=== PATIENT | female | born 1945 | race Caucasian/White ===

== ENCOUNTER 2018-03-06 09:32 | Outpatient (CLI) | payer MEDICARE, OTHER | END 2018-03-06 09:33 | disposition home or self-care (01) | LOC: BICMAMMO 09:32 | PROVIDERS: ATTEND Family Medicine | DX: Z12.31 Encounter for screening mammogram for malignant neoplasm of breast (principal); R92.1 Mammographic calcification found on diagnostic imaging of breast | CPT/HCPCS: 77063; 77067 ==

== ENCOUNTER 2018-05-07 10:23 | Outpatient (CLI) | payer MEDICARE, OTHER ==
[2018-05-07] MEDS ORDERED: ISOVUE-370 76%-LOCM 1 ML ONE (12:41)
--- NOTE | 2018-05-07 15:39 | CT ---
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 COMPARISON: CT angiogram of the chest 12/27/[address] of the abdomen and pelvis of 2014. TECHNIQUE: CT angiogram of the abdomen and pelvis with runoff to the feet was performed after the intravenous ad ministration of contrast. Three-D rendering was provided. There are multiple calcified granulomas of the subcarinal zone. There are mildly prominent right par atracheal lymph nodes. Heart size is enlarged. There is scarring and bronchiectasis in the lingula and left lung base. There is also scarring in the right lung base. Prior cholecystectomy. The liver and spleen and pancreas are unremarkable. No dilated loops of larg e or small bowel. The appendix is visualized and is normal. No retroperitoneal adenopathy. Cyst inferior pole right kidney is similar. No hydronephrosis. Adre nal gland is unremarkable. There is a lumbosacral transitional vertebra which will be stated as L5 on this exam. There is anter olisthesis of L4 over L5 due to degenerative facet arthrosis. VESSELS: The abdominal aorta is nonaneurysmal. This is minimally tortuous. The celiac trunk and superior mes enteric arteries are patent. Both renal arteries are patent. There are 2 left renal arteries. Ther e are also 2 right renal arteries. The common iliac arteries are patent. RIGHT SIDE: Internal iliac and external iliac arteries are patent. Common femoral artery is patent. The deep fe moral artery is patent. There is a focal 50% narrowing of the right popliteal artery at the popliteal hiatus axial 343. The trifurcation is patent. LEFT SIDE: The common femoral and femoral arteries are patent. Deep femoral artery is patent. The popliteal ar caroline is patent. There are large dilated superficial veins of the left superficial soft tissues. Left greater saphenous vein is dilated. Right-sided popliteal cyst is present. There is mild levoscoliosis of the lumbar spine. IMPRESSION: 1. No hemodynamically significant stenosis of the vasculature. There is a focal 50% narrowing of th e right popliteal artery at the adductor hiatus due to impingement. 2. Small volume popliteal cyst. 3. Dilated left greater saphenous vein and superficial collaterals. This can be seen with chronic v enous insufficiency. POS: TPC
== END 2018-05-07 10:24 | disposition home or self-care (01) ==
LOC: BICCT 10:23
PROVIDERS: ATTEND Internal Medicine Cardiovascular Disease
DX: I71.2 Thoracic aortic aneurysm, without rupture (principal); I70.201 Unspecified atherosclerosis of native arteries of extremities, right leg; I83.92 Asymptomatic varicose veins of left lower extremity; M71.21 Synovial cyst of popliteal space [Baker], right knee
CPT/HCPCS: 75635

== ENCOUNTER 2018-06-03 05:44 | Inpatient (IN) | payer MEDICARE, OTHER ==
[2018-05-31 13:11] VITALS: BMI 37.5
[2018-06-03] MEDS ORDERED: Albumin 5% 500 ML ONE (06:25)
[2018-06-03] MEDS ORDERED: Midazolam HCl 2 mg/2 ml Vial ONE (06:31)
[2018-06-03] MEDS ORDERED: Fentanyl 100 MCG/2 ML VIAL ONE (06:31)
[2018-06-03] MEDS ORDERED: Vecuronium 10 MG VIAL ONE ×2 (06:32→15:49)
[2018-06-03] MEDS ORDERED: Midazolam HCl 5 mg/5 ml Vial ONE (06:32)
[2018-06-03] MEDS ORDERED: Dexmedetomidine 200 MCG/2 ML VIAL ONE (06:32)
[2018-06-03] MEDS ORDERED: Heparin 10,000 UNITS/1 ML VIAL 30,000 UNITS in Sodium Chloride 0.9% 1,000 ML FS SCH (06:45)
[2018-06-03 06:48] LABS: #Eosinphils 0.4 thou/uL (0.0-0.7); #Lymphocytes 1.4 thou/uL (1.20-3.40); #Monocytes 0.5 thou/uL (0.11-0.59); #Neutrophils 3.9 thou/uL (1.40-6.50); %Basophils 0.4 % (0.0-1.0); %Eosinophils 6.8 % (0.0-10.0); %Lymphocytes 22.9 % (21.0-51.0); %Monocytes 7.4 % (0.0-10.0); %Neutrophils 62.5 % (42.0-75.0); Mean Corpuscular HGB CONC 33.3 g/dL (32.0-36.0); Mean Corpuscular Hemoglobin 31.3 pg (27.0-31.0); Mean Corpuscular Volume 93.9 fL (78.0-98.0); Mean Platelet Volume 7.9 fL (7.4-10.4); Platelet Count 243 thou/uL (130-400); RBC Distribution Width 12.5 % (11.5-14.5); Red Blood Cell (RBC) Count 5.11 mill/uL (4.20-5.40); White Blood Cell (WBC) Count 6.3 thou/uL (4.8-10.8)
[2018-06-03] MEDS ORDERED: Dexamethasone 4 mg/ml Vial ONE (07:04)
[2018-06-03] MEDS ORDERED: Sodium Chloride 0.9% 10 ML ONE (07:04)
[2018-06-03] MEDS ORDERED: Bupivacaine HCl 0.5%/Epinephrine 1:200,000/PF 30 ml Vial ONE (07:04)
[2018-06-03 07:06] LABS: Anion Gap 15 mmol/L (10-20); BUN (Urea Nitrogen) 11 mg/dL (9.8-20.1); Calc. Creatinine Clearance 84 mL/min (70-130); Calcium 10.1 mg/dL (7.8-10.44); Carbon Dioxide 24 mmol/L (23-31); Chloride 105 mmol/L (98-107); Estimated GFR-MDRD 63; Glucose 97 mg/dL (83-110); Potassium 3.9 mmol/L (3.5-5.1); Sodium 140 mmol/L (136-145)
[2018-06-03] MEDS ORDERED: CEFAZOLIN 2 GM/50 ML BAG ONE (07:13)
[2018-06-03] MEDS ORDERED: Nitroglycerin 50 MG/250 ML BOT 250 ML IVPB PRN (10:44)
[2018-06-03] MEDS ORDERED: DOPamine 400 MG/D5W 250 ML 250 ML IVPB PRN (10:44)
[2018-06-03] MEDS ORDERED: Bisacodyl 5 MG TAB PO PRN (10:44)
[2018-06-03] MEDS ORDERED: Fentanyl 100 MCG/2 ML VIAL SLOW IVP PRN ×2 (10:44→15:27)
[2018-06-03] MEDS ORDERED: Post-Op Insulin Drip Protocol IVPB ONE (10:44)
[2018-06-03] MEDS ORDERED: Bisacodyl 10 MG SUPP PR PRN (10:44)
[2018-06-03] MEDS ORDERED: Acetaminophen 325 MG TAB PO PRN (10:44)
[2018-06-03] MEDS ORDERED: Norepinephrine 8 MG/0.9% NS 250 ML IVPB PRN (10:44)
[2018-06-03] MEDS ORDERED: hydrALAZINE 20 MG/ML VIAL SLOW IVP PRN (10:44)
[2018-06-03] MEDS ORDERED: Mag-Al 1200 mg/1200 mg/30 ML UDCUP PO PRN (10:44)
[2018-06-03] MEDS ORDERED: HYDROcodone/Acetaminophen 5/325 mg Tablet PO PRN (10:44)
[2018-06-03] MEDS ORDERED: Hetastarch 6% 500 ML 500 ML IVPB PRN (10:44)
[2018-06-03] MEDS ORDERED: Guaifenesin DM 100-10/5 ML UDCUP PO PRN (10:44)
[2018-06-03] MEDS ORDERED: Magnesium 2 GM/NS 0.9% 100 ML 2 GM in Premix Bag 1 BAG IVPB SCH (10:45)
[2018-06-03] MEDS ORDERED: HUMULIN R 100 UNITS in Sodium Chloride 0.9% 100 ML IVPB SCH (11:11)
[2018-06-03] MEDS ORDERED: Dextrose 50% Abboject 50 ML SYRINGE SLOW IVP PRN (11:11)
[2018-06-03] MEDS ORDERED: Dextrose 5% in Water 1,000 ML IV PRN (11:11)
[2018-06-03] MEDS: Fentanyl 100 MCG/2 ML VIAL SLOW IVP PRN ×2 (11:13→14:30)
[2018-06-03] MEDS ORDERED: Fentanyl 100 MCG/2 ML VIAL SLOW IVP SCH (11:15)
[2018-06-03] MEDS: Insulin Regular 300 UNITS/3 ML VIAL SC PRN ×2 (11:17→15:08)
[2018-06-03] MEDS ORDERED: Magnesium 2 GM/50 ML 2 GM in Premix Bag 1 BAG IVPB SCH (11:30)
[2018-06-03 11:43] LABS: #Eosinphils 0.3 thou/uL (0.0-0.7); #Lymphocytes 1.8 thou/uL (1.20-3.40); #Monocytes 0.6 thou/uL (0.11-0.59); %Basophils 0.1 % (0.0-1.0); %Eosinophils 1.7 % (0.0-10.0); %Lymphocytes 11.6 % (21.0-51.0); %Monocytes 3.7 % (0.0-10.0); Hemoglobin 13.1 g/dL (12.0-16.0); Mean Corpuscular HGB CONC 33.5 g/dL (32.0-36.0); Mean Corpuscular Hemoglobin 31.4 pg (27.0-31.0); Mean Corpuscular Volume 93.9 fL (78.0-98.0); Mean Platelet Volume 8.1 fL (7.4-10.4); Platelet Count 180 thou/uL (130-400); RBC Distribution Width 12.1 % (11.5-14.5); Red Blood Cell (RBC) Count 4.16 mill/uL (4.20-5.40); White Blood Cell (WBC) Count 15.7 thou/uL (4.8-10.8)
[2018-06-03] MEDS: Sodium Chloride 0.9% 1,000 ML IV SCH ×2 (11:44→20:00)
--- NOTE | 2018-06-03 11:47 | OP ---
DATE OF PROCEDURE: 06/03/2018 PREOPERATIVE DIAGNOSIS: Coronary artery disease. PROCEDURES PERFORMED: Coronary artery bypass graft x2, left internal mammary artery as a sequential graft to the LAD diagonal, CELIS with good quality LAD and diagonal, both about 1.5 mm, free of disease. PUFF IRON OPERATOR: Dr. Shankar. TRANSFUSION: None. DESCRIPTION OF PROCEDURE: After adequate anesthesia had been obtained, the patient was prepped and draped. A piece of saphenous vein was harvested from the left lower leg by Dr. Shankar while I performed a median sternotomy. After opening the sternum, the left internal mammary artery was harvested. The patient was heparinized and the mammary divided distally and treated with intraluminal papaverine. Following this, it was passed posterior to the thymus gland. Aorta and right atrium were cannulated and it should be noted while the mammary artery was being harvested, the patient went into a rate controlled atrial fibrillation. After institution of cardiopulmonary bypass, the aorta was crossclamped and a liter of cold blood cardioplegia was given through the aortic root. Following this, the left atrial appendage was oversewn with a double layer of 4-0 Prolene suture and then the sequential diagonal [id number] CELIS, end-to-side to the LAD anastomosis was completed. The mammary pedicle was secured to the myocardium. Cross-clamp was removed and the cardioplegic needle site was oversewn with a pursestring suture of 5-0 Prolene and then a [id number] suture. The patient was then weaned from cardiopulmonary bypass. Cannula was removed. Protamine was given systemically. Aortic cannulation site was secured with a 4-0 Prolene suture. Mediastinal and left pleural drains were placed following which the sternum was reapproximated with #7 interrupted wire using vancomycin paste on the sternal edges, platelet rich blood, and platelet poor plasma. Subcutaneous tissue and skin were closed in layers. Job ID: [id number]
[2018-06-03] MEDS: Ondansetron PF 4 MG/2 ML Vial IVP PRN ×2 (11:50→17:38)
[2018-06-03] MEDS: Ketorolac Tromethamine 30 MG/ML VIAL IVP SCH ×2 (11:50→17:56)
[2018-06-03 11:58] LABS: INR-International Normal Ratio 1.2; PTT 31.3 SEC (22.9-36.1); Prothrombin Time 15.7 SEC (12.0-14.7)
[2018-06-03 12:10] LABS: Anion Gap 15 mmol/L (10-20); BUN (Urea Nitrogen) 9 mg/dL (9.8-20.1); Calc. Creatinine Clearance 96 mL/min (70-130); Calcium 8.2 mg/dL (7.8-10.44); Carbon Dioxide 20 mmol/L (23-31); Chloride 109 mmol/L (98-107); Estimated GFR-MDRD 73; Glucose 152 mg/dL (83-110); Potassium 3.8 mmol/L (3.5-5.1); Sodium 140 mmol/L (136-145)
--- NOTE | 2018-06-03 12:21 | RAD ---
PORTABLE SEMIUPRIGHT FRONTAL CHEST RADIOGRAPH: DATE: 06/03/2018. COMPARISON: None available. HISTORY: Open heart surgery. FINDINGS: Midline sternotomy wires are present. Postsurgical drainage catheter overlies the midline mediastinu m and the left lung base. There is a right-sided vascular catheter, distal tip overlying the region of the right atrium. There is pulmonary vascular prominence. There is no pneumothorax. There is bl unting of the costophrenic angles, left greater than right, suggesting volume loss or small volume pl eural fluid. Increased density in the left base obscures the left hemidiaphragm suggesting left lowe r lobe partial consolidation/collapse. IMPRESSION: Postoperative changes as detailed above. Increased density noted in the lung bases, left greater sarita n right, for which followup is advised. POS: OTILIA
[2018-06-03] MEDS: Potassium Chloride 20 MEQ/100 ML PREMIX BAG IVPB PRN ×2 (12:29→18:32)
[2018-06-03] MEDS: Promethazine HCl 25 MG/ML VIAL IM PRN ×2 (12:36→19:59)
[2018-06-03] MEDS ORDERED: CEFAZOLIN/Water 2 GM/20 ML SYRINGE SLOW IVP SCH (14:00)
[2018-06-03] MEDS ORDERED: Prevnar 13-Val Conj/PF 0.5 ML SYRINGE IM ONE (14:15)
[2018-06-03] MEDS: CEFAZOLIN 2 GM/50 ML-DEXTROSE 2 GM in Premix Bag 1 BAG IVPB SCH ×2 (14:25→21:19)
[2018-06-03] MEDS ORDERED: Magnesium 5 GM/10 ML VIAL ONE (15:49)
[2018-06-03] MEDS ORDERED: Ondansetron PF 4 MG/2 ML Vial ONE (15:49)
[2018-06-03] MEDS ORDERED: Papaverine 60 MG/2 ML VIAL ONE (15:49)
[2018-06-03] MEDS ORDERED: Glycopyrrolate 0.2 MG/ML 5 ML SYRINGE ONE (15:49)
[2018-06-03] MEDS ORDERED: PHENYLEPHRINE-NS 100 MCG/ML 10 ML SYRINGE ONE (15:49)
[2018-06-03] MEDS ORDERED: Potassium Chloride 60 MEQ/30 ML VIAL ONE (15:49)
[2018-06-03] MEDS ORDERED: Nitroglycerin 50 MG/250 ML BOT ONE (15:49)
[2018-06-03] MEDS ORDERED: Cardioplegic Soln 1,000 ML BAG ONE (15:49)
[2018-06-03] MEDS ORDERED: Sodium Bicarb 50 MEQ/50 ML VIAL ONE (15:49)
[2018-06-03] MEDS ORDERED: Heparin 5,000 UNITS/ML VIAL ONE (15:49)
[2018-06-03] MEDS ORDERED: Thrombin 5000 UNITS/5 ML VIAL ONE (15:49)
[2018-06-03] MEDS ORDERED: Calcium Chloride 1 GM/10 ML Abboject SYRINGE ONE (15:49)
[2018-06-03] MEDS ORDERED: Protamine Sulfate 250 MG/25 ML VIAL ONE (15:49)
[2018-06-03] MEDS ORDERED: ePHEDrine 50 MG/ML VIAL ONE (15:49)
[2018-06-03] MEDS ORDERED: Lidocaine 2% PF 100 mg/5 ml Syringe ONE (15:49)
[2018-06-03] MEDS ORDERED: Aminocaproic Acid 5 GM/20 ML VIAL ONE (15:49)
[2018-06-03] MEDS ORDERED: Metoprolol Tartrate 5 MG/5 ML VIAL ONE (15:49)
[2018-06-03] MEDS ORDERED: Ketorolac Tromethamine 30 MG/ML VIAL ONE (15:49)
[2018-06-03] MEDS ORDERED: Heparin 30,000 units/30 ml VIAL ONE (15:49)
[2018-06-03] MEDS ORDERED: Mannitol 12.5 GM/50 ML ONE (15:49)
[2018-06-03 18:02] LABS: Hemoglobin 13.1 g/dL (12.0-16.0)
[2018-06-03 18:06] LABS: Potassium 3.6 mmol/L (3.5-5.1)
[2018-06-03] MEDS: Simvastatin 20 MG TAB PO SCH (21:19)
[2018-06-03] MEDS: Famotidine/PF 20 mg/2ml Vial SLOW IVP SCH (21:19)
[2018-06-04 04:21] LABS: #Lymphocytes 0.9 thou/uL (1.20-3.40); #Monocytes 0.9 thou/uL (0.11-0.59); #Neutrophils 11.9 thou/uL (1.40-6.50); %Eosinophils 0.1 % (0.0-10.0); %Lymphocytes 6.3 % (21.0-51.0); %Monocytes 6.2 % (0.0-10.0); %Neutrophils 87.4 % (42.0-75.0); Hemoglobin 12.9 g/dL (12.0-16.0); Mean Corpuscular HGB CONC 33.9 g/dL (32.0-36.0); Mean Corpuscular Volume 94.5 fL (78.0-98.0); Mean Platelet Volume 8.4 fL (7.4-10.4); Platelet Count 173 thou/uL (130-400); RBC Distribution Width 12.4 % (11.5-14.5); Red Blood Cell (RBC) Count 4.02 mill/uL (4.20-5.40); White Blood Cell (WBC) Count 13.7 thou/uL (4.8-10.8)
[2018-06-04 04:39] LABS: Anion Gap 12 mmol/L (10-20); BUN (Urea Nitrogen) 12 mg/dL (9.8-20.1); Calc. Creatinine Clearance 98 mL/min (70-130); Calcium 7.7 mg/dL (7.8-10.44); Carbon Dioxide 19 mmol/L (23-31); Chloride 111 mmol/L (98-107); Estimated GFR-MDRD 76; Glucose 105 mg/dL (83-110); Potassium 3.8 mmol/L (3.5-5.1); Sodium 138 mmol/L (136-145)
[2018-06-04] MEDS: Ketorolac Tromethamine 30 MG/ML VIAL IVP SCH ×4 (05:46→17:11)
[2018-06-04] MEDS: CEFAZOLIN 2 GM/50 ML-DEXTROSE 2 GM in Premix Bag 1 BAG IVPB SCH (05:46)
[2018-06-04] MEDS: Sodium Chloride 0.9% 1,000 ML IV SCH ×2 (05:47→14:13)
[2018-06-04] MEDS: Potassium Chloride 20 MEQ/100 ML PREMIX BAG IVPB PRN (05:53)
--- NOTE | 2018-06-04 08:10 | PDOC.CTH ---
Cardiology Progress Note - Subjective The pt seen and examined. No overnight events. No cardiac complaints. She had to go back to bed short after getting up to chair due to dizziness and hypotesive. - Objective Vital Signs Temp Pulse Ox 06/04/18 07:40 95 06/04/18 07:00 98.2 F Weight 205 lb 0.478 oz 06/03/18 06/04/18 06/05/18 06:59 06:59 06:59 Intake Total 2146.8 Output Total 1265 60 Balance 881.8 -60 - Physical Examination General/Neuro: alert & oriented x3 Neck: no JVD present Lungs: other: (diminished at bases) Heart: RRR Abdomen: soft Extremities: other: (No edema) - Telemetry Telemetry Rhythm: SR 70s - Labs Result Diagrams: 06/04/18 04:06 06/04/18 04:06 - Assessment/Plan 1. CABG x2 on 06/03/2018 with CELIS-LAD and Diag - stable; On statin and ASA 325mg qd; will resume Bblocker and ARB when her VS is more stable 2. HTN - stable without any BP med for now. cont. to monitor MAR reviewed Pt. seen and eval. by me. I agree with the A/P by the DONOR SERVICES MANAGER.Pt. is feeling better after being back in bed. Chest clear. RRR. ANGEL ligated during surgery. Review of Systems - Review of Systems Constitutional: reports: weakness EENTM: reports: no symptoms reported Respiratory: reports: no symptoms reported Cardiac (ROS): reports: no symptoms reported ABD/GI: reports: no symptoms reported : reports: no symptoms reported
--- NOTE | 2018-06-04 08:25 | RAD ---
CHEST ONE VIEW: INDICATIONS: Status post open heart surgery. COMPARISON: 06/03/2018 FINDINGS: Midline sternotomy changes, mediastinal drains, and right subclavian central venous catheter is simil ar appearing. Left-sided pleural and parenchymal opacity and cardiomegaly are stable. No pneumothor ax is evident. IMPRESSION: Stable examination to 06/03/2018. POS: BH
[2018-06-04] MEDS: HYDROcodone/Acetaminophen 5/325 mg Tablet PO PRN ×2 (08:33→20:44)
[2018-06-04] MEDS: Famotidine/PF 20 mg/2ml Vial SLOW IVP SCH ×2 (08:35→20:43)
[2018-06-04] MEDS: Ondansetron PF 4 MG/2 ML Vial IVP PRN (08:36)
[2018-06-04] MEDS ORDERED: Polyethylene Glycol 3350 17 GM Packet PO SCH (09:00)
[2018-06-04] MEDS ORDERED: Aspirin 325 MG TAB PO SCH (09:00)
[2018-06-04 16:28] LABS: Actual Bicarbonate (HCO3a) 23.9 mEq/L (22-28); Analyzer IN Cardio OR; Base Excess (BEa) 0.6 mEq/L (-2.0 to +3.0); CO2 Tension 34.7 mmHg (35.0-45.0); Calcium, Ionized 1.16 mmol/L (1.12-1.30); Carboxyhemoglobin (COHb) 0.6 gm% (0.0-3.0); Hemoglobin (Hb) 14.7 g/dL (12.0-16.0); O2 Tension (PaO2) 264.8 mmHg (> 70.0); Potassium - ABG Lab 3.73 mmol/L (3.70-5.30); pH, Arterial 7.46 (7.35-7.45)
[2018-06-04 16:29] LABS: Actual Bicarbonate (HCO3a) 20.5 mEq/L (22-28); Analyzer IN Cardio OR; Base Excess (BEa) -2.4 mEq/L (-2.0 to +3.0); CO2 Tension 30.4 mmHg (35.0-45.0); Calcium, Ionized 1.12 mmol/L (1.12-1.30); Carboxyhemoglobin (COHb) 0.7 gm% (0.0-3.0); Hemoglobin (Hb) 14.5 g/dL (12.0-16.0); O2 Tension (PaO2) 169.5 mmHg (> 70.0); pH, Arterial 7.45 (7.35-7.45)
[2018-06-04 16:29] LABS: Actual Bicarbonate (HCO3a) 21.5 mEq/L (22-28); Analyzer IN Cardio OR; Base Excess (BEa) -4.3 mEq/L (-2.0 to +3.0); CO2 Tension 42.5 mmHg (35.0-45.0); Calcium, Ionized 1.05 mmol/L (1.12-1.30); Carboxyhemoglobin (COHb) 0.3 gm% (0.0-3.0); Hemoglobin (Hb) 10.9 g/dL (12.0-16.0); O2 Tension (PaO2) 405.9 mmHg (> 70.0); Potassium - ABG Lab 4.67 mmol/L (3.70-5.30); pH, Arterial 7.32 (7.35-7.45)
[2018-06-04 16:29] LABS: Actual Bicarbonate (HCO3v) 24 mEq/L (22-28); Analyzer IN Cardio OR; Base Excess -2.5 mEq/L (-2.0 to +3.0); Calcium, Ionized 1.05 mmol/L (1.16-1.32); Chloride (ABG LAB) 104 mmol/L (98-106); Hemoglobin (Hb) 10.9 g/dL (11.7-16.1); Potassium - ABG Lab 4.38 mmol/L (3.70-5.30); Sodium 133.9 mmol/L (133-146)
[2018-06-04 16:30] LABS: Actual Bicarbonate (HCO3a) 23.2 mEq/L (22-28); Analyzer IN Cardio OR; Base Excess (BEa) -2.2 mEq/L (-2.0 to +3.0); CO2 Tension 41.9 mmHg (35.0-45.0); Carboxyhemoglobin (COHb) 0.2 gm% (0.0-3.0); Hemoglobin (Hb) 13.1 g/dL (12.0-16.0); O2 Tension (PaO2) 249.8 mmHg (> 70.0); Potassium - ABG Lab 3.82 mmol/L (3.70-5.30); Puncture Site ALINE; pH, Arterial 7.36 (7.35-7.45)
[2018-06-04 16:31] LABS: Puncture Site ALINE
[2018-06-04 16:31] LABS: Puncture Site ALINE
[2018-06-04 16:32] LABS: Puncture Site ALINE
[2018-06-04] MEDS: Simvastatin 20 MG TAB PO SCH (20:43)
[2018-06-05] MEDS: Sodium Chloride 0.9% 1,000 ML IV SCH (00:53)
[2018-06-05] MEDS: Ketorolac Tromethamine 30 MG/ML VIAL IVP SCH ×2 (01:02→05:20)
[2018-06-05 05:12] LABS: #Eosinphils 0.2 thou/uL (0.0-0.7); #Lymphocytes 1.9 thou/uL (1.20-3.40); #Monocytes 0.8 thou/uL (0.11-0.59); #Neutrophils 7.4 thou/uL (1.40-6.50); %Basophils 0.4 % (0.0-1.0); %Eosinophils 1.8 % (0.0-10.0); %Lymphocytes 18.2 % (21.0-51.0); %Monocytes 7.5 % (0.0-10.0); %Neutrophils 72.1 % (42.0-75.0); Hemoglobin 11.5 g/dL (12.0-16.0); Mean Corpuscular HGB CONC 33.2 g/dL (32.0-36.0); Mean Corpuscular Hemoglobin 31.6 pg (27.0-31.0); Mean Corpuscular Volume 95.1 fL (78.0-98.0); Mean Platelet Volume 8.9 fL (7.4-10.4); Platelet Count 158 thou/uL (130-400); RBC Distribution Width 12.3 % (11.5-14.5); Red Blood Cell (RBC) Count 3.64 mill/uL (4.20-5.40); White Blood Cell (WBC) Count 10.3 thou/uL (4.8-10.8)
[2018-06-05 05:32] LABS: Anion Gap 10 mmol/L (10-20); BUN (Urea Nitrogen) 12 mg/dL (9.8-20.1); Calc. Creatinine Clearance 92 mL/min (70-130); Calcium 7.5 mg/dL (7.8-10.44); Carbon Dioxide 23 mmol/L (23-31); Chloride 107 mmol/L (98-107); Estimated GFR-MDRD 70; Glucose 104 mg/dL (83-110); Potassium 3.7 mmol/L (3.5-5.1); Sodium 136 mmol/L (136-145)
[2018-06-05] MEDS ORDERED: Mag-Al 1200 mg/1200 mg/30 ML UDCUP PO PRN (08:10)
[2018-06-05] MEDS ORDERED: Bisacodyl 10 MG SUPP PR PRN (08:10)
[2018-06-05] MEDS ORDERED: Nitroglycerin 0.4 MG TAB (25 Tab Bottle) SL PRN (08:10)
[2018-06-05] MEDS ORDERED: Promethazine HCl 25 MG/ML VIAL IM PRN (08:10)
[2018-06-05] MEDS ORDERED: Mineral Oil ENEMA PR PRN (08:10)
[2018-06-05] MEDS ORDERED: Milk Of Magnesia 30 ML UDCUP PO PRN (08:10)
[2018-06-05] MEDS ORDERED: Guaifenesin DM 100-10/5 ML UDCUP PO PRN (08:10)
[2018-06-05] MEDS ORDERED: Bisacodyl 5 MG TAB PO PRN (08:10)
[2018-06-05] MEDS ORDERED: HYDROcodone/Acetaminophen 5/325 mg Tablet PO PRN ×2 (08:10)
[2018-06-05] MEDS ORDERED: Fentanyl 100 MCG/2 ML VIAL SLOW IVP PRN ×2 (08:10)
[2018-06-05] MEDS ORDERED: Furosemide 20 MG/2 ML VIAL SLOW IVP SCH (08:10)
--- NOTE | 2018-06-05 08:23 | PDOC.CTH ---
Cardiology Progress Note - Subjective The pt seen and examined. No overnight events. No cardiac complaints. She had 1 episode of dizziness when she tx from the bed to chair this AM. She stated she has not walked since the sx. - Objective Vital Signs Temp 06/05/18 04:00 98.2 F 06/05/18 00:00 98.0 F Weight 204 lb 2.369 oz 06/04/18 06/05/18 06/06/18 06:59 06:59 06:59 Intake Total 2146.8 2366 Output Total 1265 949 Balance 881.8 1417 - Physical Examination General/Neuro: alert & oriented x3 Neck: no JVD present Lungs: CTA (diminished at bases) Heart: RRR Abdomen: soft Extremities: other: (No edema) - Telemetry Telemetry Rhythm: SR 70s - Labs Result Diagrams: 06/05/18 04:10 06/05/18 04:10 - Assessment/Plan 1. CABG x2 on 06/03/2018 with CELIS-LAD and Diag with ANGEL ligation - stable; On statin and ASA 325mg qd; Metoprolol 12.5mg BID from this AM. 2. HTN - Metoprolol 12.5mg BID from this AM. cont. to monitor MAR reviewed Review of Systems - Review of Systems Constitutional: reports: no symptoms reported EENTM: reports: no symptoms reported Respiratory: reports: no symptoms reported Cardiac (ROS): reports: no symptoms reported ABD/GI: reports: no symptoms reported : reports: no symptoms reported Musculoskeletal: reports: no symptoms reported
--- NOTE | 2018-06-05 08:23 | RAD ---
PORTABLE CHEST ONE VIEW: Date: 06-05-18 Time: 4:45 a.m. History: Post op open heart surgery. FINDINGS/IMPRESSION: No significant interval change is seen since the previous day's exam. POS: OTILIA
[2018-06-05] MEDS: Potassium Chloride 10 MEQ TAB PO SCH (09:26)
[2018-06-05] MEDS: Furosemide 40 MG TAB PO SCH (09:27)
[2018-06-05] MEDS: Famotidine 20 MG TAB PO SCH ×2 (09:27→20:10)
[2018-06-05] MEDS: Aspirin 325 mg Enteric Coated Tablet PO SCH (09:27)
[2018-06-05] MEDS: Metoprolol Tartrate 25 MG TAB PO SCH ×2 (09:28→20:09)
[2018-06-05] MEDS: Polyethylene Glycol 3350 17 GM Packet PO SCH (09:29)
[2018-06-05] MEDS: Atorvastatin Calcium 40 MG TAB PO SCH (20:08)
[2018-06-05] MEDS ORDERED: Simvastatin 40 MG TAB PO SCH (21:00)
[2018-06-05] MEDS ORDERED: Atorvastatin Calcium 20 MG TAB PO SCH (21:00)
[2018-06-06] MEDS: Polyethylene Glycol 3350 17 GM Packet PO SCH (08:13)
[2018-06-06] MEDS: Potassium Chloride 10 MEQ TAB PO SCH (08:15)
[2018-06-06] MEDS: Famotidine 20 MG TAB PO SCH ×2 (08:15→20:54)
[2018-06-06] MEDS: Furosemide 40 MG TAB PO SCH (08:15)
[2018-06-06] MEDS: Metoprolol Tartrate 25 MG TAB PO SCH ×2 (08:15→20:54)
[2018-06-06] MEDS: Aspirin 325 mg Enteric Coated Tablet PO SCH (08:16)
--- NOTE | 2018-06-06 12:37 | PDOC.CTH ---
Cardiology Progress Note - Subjective The pt seen and examined. No overnight events. No cardiac complaints. - Objective Vital Signs Temp Pulse Pulse Pulse Resp BP BP 06/06/18 11:20 98.8 F 86 16 06/06/18 08:50 87 89 120/62 117/58 L 06/06/18 07:15 98.4 F 82 16 06/06/18 04:00 99.1 F 81 18 BP BP Pulse Ox 06/06/18 11:20 120/67 93 L 06/06/18 08:50 06/06/18 07:15 136/60 93 L 06/06/18 04:00 113/57 L 93 L Weight 211 lb 3.2 oz 06/05/18 06/06/18 06/07/18 06:59 06:59 06:59 Intake Total 2366 1470 Output Total 949 2000 Balance 1417 -530 - Physical Examination General/Neuro: alert & oriented x3 Neck: no JVD present Lungs: CTA (diminished at bases) Abdomen: soft Extremities: other: (No edema) - Telemetry Telemetry Rhythm: SR - Labs Result Diagrams: 06/05/18 04:10 06/05/18 04:10 - Assessment/Plan 1. CABG x2 on 06/03/2018 with CELIS-LAD and Diag with ANGEL ligation - stable; On statin, ASA 325mg qd and Metoprolol 12.5mg BID. 2. HTN - stable with Metoprolol 12.5mg BID. MAR reviewed Pt. seen and eval. by me. I agree with the A/P by the ACTUARY. Chest clear. RRR.Doing well post CABG. Review of Systems - Review of Systems Constitutional: reports: weakness EENTM: reports: no symptoms reported Respiratory: reports: no symptoms reported Cardiac (ROS): reports: no symptoms reported ABD/GI: reports: no symptoms reported : reports: no symptoms reported Musculoskeletal: reports: no symptoms reported Skin: reports: no symptoms reported
[2018-06-06] MEDS: Acetaminophen 325 MG TAB PO PRN (18:26)
[2018-06-06] MEDS: Atorvastatin Calcium 40 MG TAB PO SCH (20:54)
[2018-06-07] MEDS ORDERED: Metoprolol Tartrate 25 MG TAB PO SCH (06:32)
[2018-06-07] MEDS: Aspirin 325 mg Enteric Coated Tablet PO SCH (08:42)
[2018-06-07] MEDS: Potassium Chloride 10 MEQ TAB PO SCH (08:42)
[2018-06-07] MEDS: Metoprolol Tartrate 25 MG TAB PO SCH ×2 (08:43→19:26)
[2018-06-07] MEDS: Polyethylene Glycol 3350 17 GM Packet PO SCH (08:43)
[2018-06-07] MEDS: Famotidine 20 MG TAB PO SCH ×2 (08:43→19:25)
[2018-06-07] MEDS: Furosemide 40 MG TAB PO SCH (08:43)
--- NOTE | 2018-06-07 08:52 | PDOC.CTH ---
Cardiology Progress Note - Subjective The pt seen and examined. No overnight events. No cardiac complaints. Instructed to walk as much as she can today. - Objective Vital Signs Temp Pulse Resp BP BP Pulse Ox 06/07/18 08:37 98.8 F 91 18 127/76 96 06/07/18 03:13 99.6 F 82 18 133/68 93 L Weight 207 lb 11.2 oz 06/06/18 06/07/18 06/08/18 06:59 06:59 06:59 Intake Total 1470 1280 Output Total 2000 900 Balance -530 380 - Physical Examination General/Neuro: alert & oriented x3 Neck: no JVD present Lungs: CTA Heart: RRR Abdomen: soft Extremities: other: (No edema) - Telemetry Telemetry Rhythm: SR - Labs Result Diagrams: 06/05/18 04:10 06/05/18 04:10 - Assessment/Plan 1. CABG x2 on 06/03/2018 with CELIS-LAD and Diag with ANGEL ligation - stable; On statin, ASA 325mg qd and Metoprolol 12.5mg BID. 2. HTN - stable with Metoprolol 12.5mg BID. RUI reviewed Pt. seen and eval. by me. I agree with the A/P by the LIBRARY AIDE. Chest clear. RRR.Doing well post CABG. she should be going home today or tomorrow. F/U with me in 1 month in office.
[2018-06-07] MEDS: Acetaminophen 325 MG TAB PO PRN (13:28)
[2018-06-07] MEDS: Atorvastatin Calcium 40 MG TAB PO SCH (19:26)
[2018-06-08] MEDS: Losartan 25 MG TAB PO SCH (07:48)
[2018-06-08] MEDS: Metoprolol Tartrate 25 MG TAB PO SCH ×2 (07:48→20:48)
[2018-06-08] MEDS ORDERED: Digoxin 0.5 MG/2 ML AMP SLOW IVP SCH (08:15)
[2018-06-08] MEDS ORDERED: Amiodarone 150 MG, Admixture Fee 1 EACH in Dextrose 5% in Water 100 ML IVPB SCH (08:30)
[2018-06-08] MEDS: Amiodarone 450 MG, Admixture Fee 1 EACH in Dextrose 5% in Water 250 ML IVPB SCH ×2 (08:52→18:51)
[2018-06-08 09:28] LABS: ALT (SGPT) 13 U/L (8-55); AST (SGOT) 25 U/L (5-34); Albumin 3.8 g/dL (3.4-4.8); Alkaline Phosphatase 68 U/L (40-150); Bilirubin, Direct 0.3 mg/dL (0.1-0.3); Bilirubin, Total 0.7 mg/dL (0.2-1.2); Protein, Total 7.2 g/dL (6.0-8.3)
[2018-06-08] MEDS: Furosemide 40 MG TAB PO SCH (10:34)
[2018-06-08] MEDS: Famotidine 20 MG TAB PO SCH ×2 (10:34→20:48)
[2018-06-08] MEDS: Potassium Chloride 10 MEQ TAB PO SCH (10:34)
[2018-06-08] MEDS: Aspirin 325 mg Enteric Coated Tablet PO SCH (10:34)
[2018-06-08] MEDS: Polyethylene Glycol 3350 17 GM Packet PO SCH (10:35)
[2018-06-08] MEDS: Atorvastatin Calcium 40 MG TAB PO SCH (20:48)
[2018-06-09 05:55] LABS: Anion Gap 13 mmol/L (10-20); BUN (Urea Nitrogen) 10 mg/dL (9.8-20.1); Calc. Creatinine Clearance 88 mL/min (70-130); Calcium 9.1 mg/dL (7.8-10.44); Carbon Dioxide 27 mmol/L (23-31); Chloride 102 mmol/L (98-107); Estimated GFR-MDRD 67; Glucose 104 mg/dL (83-110); Potassium 3.9 mmol/L (3.5-5.1); Sodium 138 mmol/L (136-145)
[2018-06-09] MEDS: Famotidine 20 MG TAB PO SCH ×2 (08:58→20:11)
[2018-06-09] MEDS: Furosemide 40 MG TAB PO SCH (08:58)
[2018-06-09] MEDS: Aspirin 325 mg Enteric Coated Tablet PO SCH (08:58)
[2018-06-09] MEDS: Metoprolol Tartrate 25 MG TAB PO SCH ×2 (08:59→20:11)
[2018-06-09] MEDS: Polyethylene Glycol 3350 17 GM Packet PO SCH (08:59)
[2018-06-09] MEDS: Losartan 25 MG TAB PO SCH (08:59)
[2018-06-09] MEDS: Potassium Chloride 10 MEQ TAB PO SCH (08:59)
[2018-06-09] MEDS: Amiodarone 450 MG, Admixture Fee 1 EACH in Dextrose 5% in Water 250 ML IVPB SCH (12:05)
[2018-06-09] MEDS: Amiodarone 200 MG TAB PO SCH (20:11)
[2018-06-09] MEDS: Atorvastatin Calcium 40 MG TAB PO SCH (20:11)
[2018-06-09] MEDS ORDERED: Amiodarone In Dextrose 360 MG in Premix Bag 1 BAG IVPB SCH (20:45)
[2018-06-10] MEDS: Furosemide 40 MG TAB PO SCH (09:23)
[2018-06-10] MEDS: Losartan 25 MG TAB PO SCH (09:23)
[2018-06-10] MEDS: Aspirin 325 mg Enteric Coated Tablet PO SCH (09:23)
[2018-06-10] MEDS: Amiodarone 200 MG TAB PO SCH ×2 (09:24→20:32)
[2018-06-10] MEDS: Potassium Chloride 10 MEQ TAB PO SCH (09:24)
[2018-06-10] MEDS: Famotidine 20 MG TAB PO SCH ×2 (09:24→20:32)
[2018-06-10] MEDS: Polyethylene Glycol 3350 17 GM Packet PO SCH (09:24)
[2018-06-10] MEDS: Metoprolol Tartrate 50 MG TAB PO SCH ×2 (09:24→20:33)
--- NOTE | 2018-06-10 12:34 | PDOC.CTH ---
Cardiology Progress Note - Subjective The pt seen and examined. No overnight events. No cardiac complaints. - Objective Vital Signs Temp Pulse Resp BP BP Pulse Ox 06/10/18 08:00 92 L 06/10/18 07:25 98.1 F 88 20 136/59 L 92 L 06/10/18 03:40 98.2 F 75 20 153/67 H 92 L Weight 200 lb 6.4 oz 06/09/18 06/10/18 06/11/18 06:59 06:59 06:59 Intake Total 1359 1840.4 Output Total 1950 2400 Balance -591 -559.6 - Physical Examination General/Neuro: alert & oriented x3 Neck: no JVD present Lungs: CTA Heart: RRR, other: Abdomen: soft Extremities: other: (No edema) - Telemetry Telemetry Rhythm: SR at this moment - Labs Result Diagrams: 06/05/18 04:10 06/09/18 04:49 - Assessment/Plan 1. Post-op Afib/Aflutter with RVR - intermittent Aflutter with controlled HR; Last aflutter episode was [id number] on 06/10/2018. On Amiodarone 400mg BID for 2wks (started on 06/09/2018); 200mg BID for 2wks, and change to 200mg qd ( started on 06/09/2018). Will request EP consult. 2. CABG x2 on 06/03/2018 with CELIS-LAD and Diag with ANGEL ligation - stable; On Lipitor 40mg, ASA 325mg qd and Metoprolol 50mg BID. 3. HTN - Metoprolol was increased from 25mg to 50 mg BID; On Losartan 50mg qd. MAR reviewed Pt. seen and eval. by me. I agree with the A/P by the CLINICAL PROGRAM DIRECTOR. If she remains in NSR then she could be seen by EP if she has further atrial flutter. She can go home with an event monitor tomorrow if she remains stable overnight. RRR. Chest clear. Incisions dry. Review of Systems - Review of Systems Constitutional: reports: no symptoms reported EENTM: reports: no symptoms reported Respiratory: reports: no symptoms reported Cardiac (ROS): reports: no symptoms reported ABD/GI: reports: no symptoms reported : reports: no symptoms reported Musculoskeletal: reports: no symptoms reported
--- NOTE | 2018-06-10 16:59 | CON ---
DATE OF CONSULTATION: 06/10/2018 REASON FOR CONSULTATION: Atrial arrhythmias. HISTORY OF PRESENT ILLNESS: Ms. Gomez is a pleasant 73-year-old woman with a history of coronary artery disease, who underwent elective coronary artery bypass performed on 06/03/[address] Scott. In her procedure, she had a CELIS to the LAD and also graft to the diagonal. Following her bypass, she was found to have atrial fibrillation and atrial flutter, prompting EP consultation. Ms. Gomez is feeling well today. Her chest tubes are out. Her temporary pacing wires are removed. Her catheter is out. She feels well and is eager to get home, but unfortunately continues to have paroxysmal episodes of rapid atrial flutter, which she is acutely aware of. She has not had any associated syncope or near syncope, but is quite aware of a heart racing sensation and palpitations. Currently, she is feeling well, resting comfortably in bed, and does not have any current cardiac symptoms. PAST MEDICAL HISTORY: 1. Coronary artery disease, status post CABG x2 vessel to LAD and diagonal on 06/03/2018 including left atrial appendage ligation. 2. Hypertension. 3. Arthritis. 4. Osteoporosis. 5. Obesity. PAST SURGICAL HISTORY: Tonsillectomy, cholecystectomy, hysterectomy, and laser ablation of the right greater saphenous vein. REVIEW OF SYSTEMS: A 12-point review of systems was conducted, positive for heart racing and palpitations. Otherwise, is negative and as per HPI. FAMILY HISTORY: Father at age 79. Mother at age 80 and was diagnosed with hypertension. SOCIAL HISTORY: Former tobacco user, greater than 10 years ago. . Denies alcohol or illicit drug use. ALLERGIES: NO KNOWN DRUG ALLERGIES. HOME MEDICATIONS: Include; 1. Naproxen 1 tablet p.r.n. 2. Nitroglycerin 1 tablet p.r.n. 3. Lutein one capsule daily. 4. Alendronate 1 tablet weekly. 5. Hydrochlorothiazide 12.5 mg daily. 6. Glucosamine chondroitin 1 tablet daily. 7. Colace 100 mg p.o. daily. 8. Calcium with vitamin D 1 tablet daily. 9. Aspirin 81 mg daily. 10. Multivitamin daily. 11. Losartan potassium 50 mg daily. 12. Omeprazole 20 mg p.r.n. 13. Metoprolol tartrate 25 mg p.o. b.i.d. PHYSICAL EXAMINATION: VITAL SIGNS: Temperature 98.1, pulse rate is 88, respirations 20, oxygen is 95 % on room air, and blood pressure is 136/59. Respirations 14. GENERAL: The patient is alert and oriented. Speech is clear. Affect is appropriate. She is well groomed and well nourished. She is in no apparent distress. Resting comfortably in bed during the exam. NECK: Supple without jugular venous distention. Her thyroid is not palpable. LUNGS: Clear to auscultation bilaterally without wheezes, crackles, or rhonchi. HEART: Rate is irregularly irregular with crisp S1 and S2. There is a fresh sternal incision healing from a recent bypass surgery. ABDOMEN: Obese, soft, and nontender without palpable masses. EXTREMITIES: Warm and dry to touch with trace bilateral edema. Healing incisions are noted to the left lower extremity from the saphenous venous graft sites. NEUROLOGIC: Grossly intact and nonfocal. Gait was not assessed. DATABASE: Hematology was reviewed and is unremarkable. Chemistry; potassium 3.9, creatinine 0.83, and magnesium 1.8. TSH is within normal limits. Telemetry and EKG, currently the patient is in sinus rhythm, but was in typical atrial flutter earlier this morning before she has spontaneously converted. There is a 2:1 CTI dependent flutter. She is also seen to have atrial fibrillation, it was earlier on the day of her surgery on 06/03/2018. IMPRESSION: 1. Recurrent atypical flutter on amiodarone. 2. Postoperative atrial fibrillation suppressed with amiodarone. 3. Coronary artery disease status post coronary artery bypass grafting. 4. Left atrial appendage oversewn during CABG 06/03/18 PLAN AND RECOMMENDATIONS: 1. Discussed treatment options for atrial arrhythmias for both left atrial circuits and right atrial circuits like her typical atrial flutter. Recommendation is for EP study and CTI ablation tomorrow. 2. Continue amiodarone short-term for at least 2 to 3 months postoperatively. Following this short course of amiodarone, could be discontinued if she has any further atrial arrhythmias are seen. We would recommend oral anticoagulation upon discharge until the left atrial appendage, which was sewn over during her bypass can be assessed by DHAVAL to demonstrate adequate closure. Ultimately, I think terminating atrial flutter with CTI ablation will allow her to stabilize and discharge home for the rest of her recovery. If further atrial fibrillation is seen following her recovery and amiodarone being discontinued could consider an ablation. This is all discussed with the patient including risks, benefits, and alternatives. She voices understanding and wishes to proceed with ablation for her atrial flutter tomorrow. Thank you for allowing us to participate in the care of this patient. Job ID: [id number] MTDD
[2018-06-10] MEDS: Atorvastatin Calcium 40 MG TAB PO SCH (20:32)
[2018-06-11 05:08] LABS: #Basophils 0.1 thou/uL (0.0-0.2); #Lymphocytes 1.9 thou/uL (1.20-3.40); #Monocytes 0.9 thou/uL (0.11-0.59); #Neutrophils 6.3 thou/uL (1.40-6.50); %Eosinophils 9.3 % (0.0-10.0); %Lymphocytes 18.9 % (21.0-51.0); %Neutrophils 61.8 % (42.0-75.0); Hemoglobin 12.9 g/dL (12.0-16.0); Mean Corpuscular HGB CONC 33.4 g/dL (32.0-36.0); Mean Corpuscular Hemoglobin 31.4 pg (27.0-31.0); Mean Corpuscular Volume 93.9 fL (78.0-98.0); Mean Platelet Volume 7.3 fL (7.4-10.4); Platelet Count 353 thou/uL (130-400); RBC Distribution Width 12.3 % (11.5-14.5); Red Blood Cell (RBC) Count 4.11 mill/uL (4.20-5.40); White Blood Cell (WBC) Count 10.2 thou/uL (4.8-10.8)
[2018-06-11 05:24] LABS: Anion Gap 12 mmol/L (10-20); BUN (Urea Nitrogen) 12 mg/dL (9.8-20.1); Calc. Creatinine Clearance 74 mL/min (70-130); Calcium 9.4 mg/dL (7.8-10.44); Carbon Dioxide 24 mmol/L (23-31); Chloride 103 mmol/L (98-107); Estimated GFR-MDRD 56; Glucose 111 mg/dL (83-110); Sodium 135 mmol/L (136-145)
[2018-06-11] MEDS: Famotidine 20 MG TAB PO SCH ×2 (08:52→20:32)
[2018-06-11] MEDS: Potassium Chloride 10 MEQ TAB PO SCH (08:52)
[2018-06-11] MEDS: Furosemide 40 MG TAB PO SCH (08:52)
[2018-06-11] MEDS: Losartan 25 MG TAB PO SCH (08:52)
[2018-06-11] MEDS: Amiodarone 200 MG TAB PO SCH ×2 (08:52→20:32)
[2018-06-11] MEDS: Aspirin 325 mg Enteric Coated Tablet PO SCH (08:52)
[2018-06-11] MEDS: Metoprolol Tartrate 50 MG TAB PO SCH ×2 (08:53→20:32)
[2018-06-11] MEDS: Polyethylene Glycol 3350 17 GM Packet PO SCH (08:53)
[2018-06-11] MEDS ORDERED: PHENYLEPHRINE-NS 100 MCG/ML 10 ML SYRINGE ONE (10:59)
[2018-06-11] MEDS ORDERED: PROPOFOL 200 MG/20 ML VIAL ONE (10:59)
--- NOTE | 2018-06-11 11:37 | PQF ---
CLINICAL DOCUMENTATION IMPROVEMENT CLARIFICATION FORM: ICD-10 Updated PLEASE DO AN ADDENDUM TO THE PROGRESS NOTE WITH ANY DOCUMENTATION UPDATES OR ADDITIONS AND CARRY THROUGH TO DC SUMMARY. THANK YOU. DATE: 06/11/2018 ATTN: Dr. Bradford Please exercise your independent, professional judgment in responding to the clarification form. Clinical indicators are provided on the bottom of this form for your review Please check appropriate box(s): [ x ] Post-Operative Complication - Atrial Fibrillation [ x ] Paroxysmal Atrial Fibrillation [ ] Persistent Atrial Fibrillation [ x ] Atrial fib/Atrial flutter [ ] Atrial Flutter [ ] Paroxysmal Atrial Fibrillation [ ] Persistent Atrial Fibrillation [ ] Other Diagnosis [ ] Unable to Determine In addition, please specify: Present on Admission (POA): [ ] Yes [ x ] No [ ] Unable to determine For continuity of documentation, please document condition throughout progress notes and discharge summary. Thank You. CLINICAL INDICATORS - SIGNS / SYMPTOMS / LABS PN 06/08 (MD Tyler) Atrial Flutter this am 143/84 rate 160's PN 06/10 (ANDREA Elder; MD Juana) Post-op Afib/Aflutter with RVR - intermittent Aflutter w/ controlled HR. EP Consult 06/10(Suzette) Telemetry and EKG, currently pt is in SR, but was in typical atrial flutter earlier this morning before she spontaneously converted. There is a 2:1 CTI dependent flutter Recurrent atypical flutter on amiodarone Postoperative atrial fibrillation suppressed with amiodarone RISKS: EP Consult 06/10: Coronary artery disease, s/p CABG x2 vessel to LAD and diagonal on 06/03/2018 including left atrial appendage ligation. TREATMENT: Order 06/09-06/10: IV Amiodarone Order 06/10: Amiodarone 400mg PO BID EP Consult 06/10 - EP study and CTI ablation tomorrow --- Thank you, Jaylin (This form is maintained as a part of the permanent medical record) 2015 [employer] All Rights Reserved Jaylin Barajas RN, BSN [email or web address] Office: [phone] [facility]
--- NOTE | 2018-06-11 11:48 | PDOC.CTH ---
Cardiology Progress Note - Subjective The pt seen and examined. No overnight events. No cardiac complaints. - Objective Vital Signs Temp Pulse Resp BP BP Pulse Ox 06/11/18 11:44 98.2 F 80 16 122/59 L 98 06/11/18 08:00 93 L 06/11/18 07:59 98.2 F 84 18 128/64 93 L 06/11/18 04:00 98.5 F 75 15 137/74 93 L Weight 201 lb 06/10/18 06/11/18 06/12/18 06:59 06:59 06:59 Intake Total 1840.4 1210 Output Total 2400 2050 Balance -559.6 -840 - Physical Examination General/Neuro: alert & oriented x3 Neck: no JVD present Lungs: CTA Heart: RRR Abdomen: soft Extremities: other: (No edema) - Telemetry Telemetry Rhythm: SR - Labs Result Diagrams: 06/11/18 04:51 06/11/18 04:51 - Assessment/Plan 1. Post-op Afib/Aflutter with RVR - intermittent Aflutter with controlled HR; Last aflutter episode was [id number] on 06/10/2018. Plan CTI ablation for Aflutter this afternoon by EP. On Amiodarone 400mg BID for 2wks (started on 01/2019); 200mg BID for 2wks, and change to 200mg qd (started on 06/09/2018). Will cont. for 2-3 months. 2. CABG x2 on 06/03/2018 with CELIS-LAD and Diag with ANGEL ligation - stable; On Lipitor 40mg, ASA 325mg qd and Metoprolol 50mg BID. 3. HTN - stable with Metoprolol 50 mg BID and Losartan 50mg qd. MAR reviewed Pt. seen and eval. by me. i agree with the A/P by the FURNITURE STAINER. Chest clear. RRR. Review of Systems - Review of Systems Constitutional: reports: no symptoms reported EENTM: reports: no symptoms reported Respiratory: reports: no symptoms reported Cardiac (ROS): reports: no symptoms reported ABD/GI: reports: no symptoms reported : reports: no symptoms reported Musculoskeletal: reports: no symptoms reported Skin: reports: no symptoms reported
[2018-06-11] MEDS ORDERED: Heparin 10,000 UNITS/1 ML VIAL ONE (14:33)
[2018-06-11] MEDS ORDERED: Propofol 1,000 MG/100 ML VIAL IV ONE (15:32)
[2018-06-11] MEDS ORDERED: Fentanyl 100 MCG/2 ML VIAL ONE (15:32)
[2018-06-11] MEDS ORDERED: Phenylephrine HCL 10 MG/ML VIAL ONE (16:01)
[2018-06-11] MEDS ORDERED: Amiodarone 150 MG/3 ML VIAL ONE (16:32)
[2018-06-11] MEDS ORDERED: DOPamine 400 MG/D5W 250 ML 250 ML ONE (17:03)
[2018-06-11] MEDS ORDERED: Ondansetron PF 4 MG/2 ML Vial ONE (18:10)
--- NOTE | 2018-06-11 18:29 | OP ---
DATE OF PROCEDURE: 06/11/2018 PROCEDURES PERFORMED: Electrophysiology study and radiofrequency ablation. REASON FOR PROCEDURE: Ms. Gomez is a 73-year-old woman with history of coronary artery disease, non-ST elevation myocardial infarction, status post coronary artery bypass graft surgery on the 4th. Records marked by persistent atrial fibrillation and with rapid rates, which required amiodarone, but then she developed the paroxysmal atrial flutter with rapid rates. She is here for cavotricuspid isthmus ablation. DESCRIPTION OF PROCEDURE: The patient received propofol by Anesthesia specialist. After adequate level of sedation achieved, the right femoral venous area was prepped, draped, and anesthetized using subcutaneous lidocaine and two 8-[place] short sheath was introduced under ultrasound guidance. Through this, a decapolar catheter was advanced to the right atrium, right ventricle, His bundle, and CS position. ThermoCool SFST catheter was advanced to the right atrium obtaining a 3D map delineating these points as well. Pacing, mapping, and recording were obtained in each location. Following findings were noted. Baseline rhythm is sinus rhythm, cycle length 903 milliseconds, MD 155, QRS 95 milliseconds, QT 425 milliseconds, AH 106 milliseconds, and HV 60 millisecond. Sinus node recovery times 1246. Corrected sinus node recovery time was 280 milliseconds. AV Wenckebach cycle length was 370 milliseconds. No VA conduction was seen with ventricular pacing. The burst atrial pacing was inducing atrial flutter and fibrillation both. At this point, decision was made to proceed with the cavotricuspid isthmus ablation, which was performed with using 40 blackwood of energy with a total of 15 lesions placed over time of 12 minutes and 34 seconds. The impedances averaged about 111 ohms. Following that prolongation of transisthmus time was seen to 180 milliseconds. During the study, amiodarone administration was necessary for suppression of atrial fibrillation. Dopamine was administered, and the transisthmus block was again checked and any reconnection to be ablated. The patient tolerated the procedure well. No complication noted. Cardiac silhouette did not change at the end of the procedure. CONCLUSION: 1. Successful cavotricuspid isthmus ablation. 2. Inducible paroxysmal atrial fibrillation requiring IV amiodarone. 3. Normal sinus and AV chris function. PLAN: 1. Continue p.o. amiodarone for suppression of atrial arrhythmias. Consider weaning it 3 months after bypass surgery frequency in the pulmonary venous isolation procedure as planned. 2. Likely benefit from oral anticoagulation when surgically feasible. Job ID: [id number]
[2018-06-11] MEDS: Atorvastatin Calcium 40 MG TAB PO SCH (20:32)
[2018-06-12] MEDS: Aspirin 325 mg Enteric Coated Tablet PO SCH (09:19)
[2018-06-12] MEDS: Potassium Chloride 10 MEQ TAB PO SCH (09:19)
[2018-06-12] MEDS: Metoprolol Tartrate 50 MG TAB PO SCH (09:19)
[2018-06-12] MEDS: Famotidine 20 MG TAB PO SCH (09:19)
[2018-06-12] MEDS: Amiodarone 200 MG TAB PO SCH (09:19)
[2018-06-12] MEDS: Furosemide 40 MG TAB PO SCH (09:19)
[2018-06-12] MEDS: Polyethylene Glycol 3350 17 GM Packet PO SCH (09:20)
[2018-06-12] MEDS: Losartan 25 MG TAB PO SCH (09:20)
[2018-06-12 09:31] VITALS: BP 116/62; TEMP 98
--- NOTE | 2018-06-12 10:17 | DIS ---
DATE OF ADMISSION: 06/03/2018 DATE OF DISCHARGE: 06/12/2018 This is a 73-year-old female, who was admitted to the hospital for coronary artery bypass grafting to the LAD and diagonal with left atrial appendage ligation. Her postoperative course was eventful only for some atrial flutter, which required ablation on 06/[address] Bradford. She will be discharged home on amiodarone tapering dose over the next month, as well as metoprolol succinate 50 mg a day, [place] for pain, and she will resume her other home medications. Discharge and followup instructions were given. Job ID: [id number]
--- NOTE | 2018-06-12 11:30 | PDOC.CTH ---
Cardiology Progress Note - Subjective The pt seen and examined. No overnight events. No cardiac complaints. - Objective Vital Signs Temp Pulse Resp BP BP Pulse Ox 06/12/18 09:00 98.0 F 79 18 116/62 95 06/12/18 08:00 95 06/12/18 04:00 98.3 F 71 17 107/56 L 92 L Weight 199 lb 06/11/18 06/12/18 06/13/18 06:59 06:59 06:59 Intake Total 1210 480 Output Total 2050 1650 Balance -840 -1170 - Physical Examination General/Neuro: alert & oriented x3 Neck: no JVD present Lungs: CTA Heart: RRR Abdomen: soft Extremities: other: (no edema) - Telemetry Telemetry Rhythm: SR - Labs Result Diagrams: 06/11/18 04:51 06/11/18 04:51 - Assessment/Plan 1. Post-op Afib/Aflutter with RVR with Aflutter Ablation on 06/11/2018 - remains in SR; On Amiodarone 400mg BID for 2wks (started on 06/09/2018); 200mg BID for 2wks, and change to 200mg qd (started on 06/09/2018). On ASA 325mg qd with s/p ANGEL ligation. 2. CABG x2 on 06/03/2018 with CELIS-LAD and Diag with ANGEL ligation - stable; On Lipitor 40mg, ASA 325mg qd and Metoprolol 50mg BID. 3. HTN - Metoprolol was increased from 25mg to 50 mg BID; On Losartan 50mg qd. MAR reviewed * From Cardiac standpoint, the pt is stable to d/c home. The pt will f/u with Dr Arias' office within 2-4wks. Review of Systems - Review of Systems Constitutional: reports: no symptoms reported EENTM: reports: no symptoms reported Respiratory: reports: no symptoms reported Cardiac (ROS): reports: no symptoms reported ABD/GI: reports: no symptoms reported : reports: no symptoms reported Musculoskeletal: reports: no symptoms reported Skin: reports: no symptoms reported Neurological: reports: no symptoms reported
--- NOTE | 2018-06-12 12:40 | PDOC.CTH ---
Cardiology Progress Note - Subjective EP PROGRESS NOTE: 06/12/18 Seen for atrial arrhythmias. Feeling well after ablation yesterday. Eager for DC. - Objective Vital Signs Temp Pulse Resp BP BP Pulse Ox 06/12/18 09:00 98.0 F 79 18 116/62 95 06/12/18 08:00 95 06/12/18 04:00 98.3 F 71 17 107/56 L 92 L Weight 199 lb 06/11/18 06/12/18 06/13/18 06:59 06:59 06:59 Intake Total 1210 480 Output Total 2050 1650 Balance -840 -1170 - Physical Examination General/Neuro: alert & oriented x3, NAD Neck: carotid US brisk, no JVD present Lungs: CTA, unlabored respirations Heart: PMI normal, RRR Abdomen: NT/ND, soft - Telemetry Telemetry Rhythm: SR - Labs Result Diagrams: 06/11/18 04:51 06/11/18 04:51 - Assessment/Plan 1. CAD s/p CABG 2. A Fib post operative 3. Atrial flutter, typical 4. CHADS2-VASC: 4 5. Left atrial appendage oversewn during CABG Maintaining sinus mechanism since CTI ablation for a. flutter yesterday. Multiple left atrial circuits seen during EPS. AFib suppressed with amiodarone. Continue short term amiodarone x 2-3 months post CABG. Will see back in clinic in 6 weeks. Recommend oral anticoagulation until left atrial appendage closure can be evaluated with DHAVAL. Amiodarone: 200mg PO BID x 2 weeks then 200mg PO daily thereafter.
--- NOTE | 2018-06-12 12:45 | EKG ---
Test Reason : Blood Pressure : / mmHG Vent. Rate : 164 BPM Atrial Rate : 166 BPM P-R Int : 000 ms QRS Dur : 076 ms QT Int : 290 ms P-R-T Axes : 000 001 143 degrees QTc Int : 478 ms Atrial fibrillation with rapid ventricular response Low voltage QRS Nonspecific ST and T wave abnormality , probably digitalis effect Abnormal ECG When compared with ECG of 03-JUN-2018 12:46, Significant changes have occurred Confirmed by DR. Jac HERMAN ([id number]) on 06/12/2018 12:45:25 PM Referred By: ADRIANNE Confirmed By:DR. Jac HERMAN
--- NOTE | 2018-06-12 12:49 | EKG ---
Test Reason : Blood Pressure : / mmHG Vent. Rate : 067 BPM Atrial Rate : 067 BPM P-R Int : 170 ms QRS Dur : 084 ms QT Int : 442 ms P-R-T Axes : 060 002 054 degrees QTc Int : 467 ms Normal sinus rhythm Low voltage QRS Borderline ECG When compared with ECG of 08-JUN-2018 08:02, (Unconfirmed) Sinus rhythm has replaced Atrial fibrillation Vent. rate has decreased BY 97 BPM Non-specific change in ST segment in Inferior leads Nonspecific T wave abnormality, improved in Lateral leads Confirmed by DR. Jac HERMAN ([id number]) on 06/12/2018 12:48:44 PM Referred By: Confirmed By:DR. Jac HERMAN
== END 2018-06-12 11:33 | disposition home or self-care (01) | DRG 236 ==
LOC: SURG A 05:44 → CCU 11:03 → 2NO 06-05 21:01
PROVIDERS: ADMIT Thoracic Surgery (Cardiothoracic Vascular Surgery); ATTEND Thoracic Surgery (Cardiothoracic Vascular Surgery)
PROC: 02110Z9 Bypass Coronary Artery, Two Arteries from Left Internal Mammary, Open Approach (ICD-10-PCS; principal; 2018-06-03)
PROC: 5A1221Z Performance of Cardiac Output, Continuous (ICD-10-PCS; 2018-06-03)
PROC: 02L70ZK Occlusion of Left Atrial Appendage, Open Approach (ICD-10-PCS; 2018-06-03)
PROC: 02583ZZ Destruction of Conduction Mechanism, Percutaneous Approach (ICD-10-PCS; 2018-06-11)
PROC: 02K83ZZ Map Conduction Mechanism, Percutaneous Approach (ICD-10-PCS; 2018-06-11)
PROC: 4A023FZ Measurement of Cardiac Rhythm, Percutaneous Approach (ICD-10-PCS; 2018-06-11)
PROC: 4A0234Z Measurement of Cardiac Electrical Activity, Percutaneous Approach (ICD-10-PCS; 2018-06-11)
DX: I25.118 Atherosclerotic heart disease of native coronary artery with other forms of angina pectoris (principal); I97.190 Other postprocedural cardiac functional disturbances following cardiac surgery; I48.4 Atypical atrial flutter; I48.0 Paroxysmal atrial fibrillation; I10 Essential (primary) hypertension; M19.90 Unspecified osteoarthritis, unspecified site; M81.0 Age-related osteoporosis without current pathological fracture; E66.9 Obesity, unspecified; I25.2 Old myocardial infarction; Z87.891 Personal history of nicotine dependence; Z68.36 Body mass index [BMI] 36.0-36.9, adult; Z79.82 Long term (current) use of aspirin; Y83.2 Surgical operation with anastomosis, bypass or graft as the cause of abnormal reaction of the patient, or of later complication, without mention of misadventure at the time of the procedure
CPT/HCPCS: 36415; 36416; 36430; 71045; 76942; 80048; 80076; 82805; 83735; 84132; 84443; 85025; 85610; 85730; 86850; 86900; 86901; 92960; 93005; 93010; 93613; 93623; 93653; 93798; C1730; C1769; J0282; J0670; J1100; J1160; J1265; J1642; J1644; J1815; J1885; J1940; J2001; J2150; J2250; J2370; J2405; J2440; J2550; J2704; J2720; J3010; J3370; J3475; J3480; J3490; J7050; J7070; P9045; S0017; S0028

== ENCOUNTER 2018-07-07 01:38 | Observation (INO) | payer MEDICARE, OTHER ==
[2018-07-07 03:26] LABS: #Eosinphils 0.3 thou/uL (0.0-0.7); #Lymphocytes 1.5 thou/uL (1.20-3.40); #Monocytes 0.6 thou/uL (0.11-0.59); #Neutrophils 4.6 thou/uL (1.40-6.50); %Basophils 0.3 % (0.0-1.0); %Eosinophils 4.7 % (0.0-10.0); %Lymphocytes 21.3 % (21.0-51.0); %Monocytes 8.8 % (0.0-10.0); %Neutrophils 64.9 % (42.0-75.0); Hemoglobin 11.9 g/dL (12.0-16.0); Mean Corpuscular HGB CONC 32.8 g/dL (32.0-36.0); Mean Corpuscular Hemoglobin 30.7 pg (27.0-31.0); Mean Corpuscular Volume 93.4 fL (78.0-98.0); Mean Platelet Volume 7.3 fL (7.4-10.4); Platelet Count 296 thou/uL (130-400); RBC Distribution Width 12.6 % (11.5-14.5); Red Blood Cell (RBC) Count 3.89 mill/uL (4.20-5.40)
[2018-07-07 03:42] LABS: ALT (SGPT) 12 U/L (8-55); AST (SGOT) 16 U/L (5-34); Albumin 3.6 g/dL (3.4-4.8); Alkaline Phosphatase 84 U/L (40-150); Anion Gap 14 mmol/L (10-20); BUN (Urea Nitrogen) 15 mg/dL (9.8-20.1); Bilirubin, Total 0.4 mg/dL (0.2-1.2); Calc. Creatinine Clearance 0 mL/min (70-130); Calcium 9.8 mg/dL (7.8-10.44); Carbon Dioxide 23 mmol/L (23-31); Chloride 104 mmol/L (98-107); Estimated GFR-MDRD 51; Globulin 3.4 g/dL (2.4-3.5); Glucose 116 mg/dL (83-110); Potassium 3.4 mmol/L (3.5-5.1); Sodium 138 mmol/L (136-145)
[2018-07-07 03:45] LABS: Actual Bicarbonate (HCO3a) 22.3 mEq/L (22-28); Analyzer IN Cardio ER; Base Excess (BEa) -0.1 mEq/L (-2.0 to +3.0); CO2 Tension 29.7 mmHg (35.0-45.0); Calcium, Ionized 1.22 mmol/L (1.12-1.30); Carboxyhemoglobin (COHb) 0.3 gm% (0.0-3.0); Hemoglobin (Hb) 12.3 g/dL (12.0-16.0); O2 Tension (PaO2) 99.8 mmHg (> 70.0); Potassium - ABG Lab 3.37 mmol/L (3.70-5.30); pH, Arterial 7.49 (7.35-7.45)
[2018-07-07 03:47] LABS: Puncture Site R RADIAL
[2018-07-07 03:48] LABS: ALV-art Gradient 62.715 (0-20)
[2018-07-07] MEDS ORDERED: Cefepime 2 GM in Sodium Chloride 0.9% 100 ML IVPB SCH (05:45)
[2018-07-07] MEDS ORDERED: VANCOMYCIN HCL IVPB SCH (06:00)
[2018-07-07] MEDS ORDERED: WATER IVPB SCH (06:00)
[2018-07-07] MEDS ORDERED: DEXTROSE 5% IVPB SCH (06:00)
[2018-07-07] MEDS ORDERED: Nitroglycerin 0.4 MG TAB (25 Tab Bottle) PO PRN (06:14)
[2018-07-07] MEDS ORDERED: Senokot S 8.6-50 MG TAB PO PRN (06:14)
[2018-07-07] MEDS ORDERED: Calcium Carbonate 500 MG ChewTAB PO PRN (06:14)
[2018-07-07] MEDS ORDERED: Acetaminophen 325 MG TAB PO PRN (06:14)
[2018-07-07] MEDS ORDERED: Potassium Chloride 20 MEQ TAB PO SCH (06:15)
--- NOTE | 2018-07-07 06:56 | HP ---
PRIMARY CARE PHYSICIAN: Dr. Mora. PRIMARY FIELD SALES MANAGER: Dr. Arias. CHIEF COMPLAINT: Palpitations. HISTORY OF PRESENT ILLNESS: The patient is a 73-year-old female with recent coronary artery bypass grafting, presented to the emergency room with above complaints. Post-CABG, she was found to have atrial fibrillation with atrial flutter requiring ablation. She was discharged home on amiodarone taper as well as metoprolol. The patient presented to the emergency room with palpitations that started last night. She felt like skipping beats. She had mild shortness of breath during the ambulance ride. She also has dry cough recently. No chest pain, lightheadedness, dizziness, syncope, diaphoresis, nausea, or vomiting reported. She is compliant with all of her medications. The palpitations were intermittent without any aggravating or relieving factor. In the emergency room, her initial vital signs showed temperature 98.4, respirations 16, pulse 81, blood pressure 172/71 with O2 saturation 88% on room air. Her O2 saturation improved to 95% on 2 L nasal cannula. Chest x-ray was negative for infiltrate. CT scan of the chest showed trace pleural effusion. Her EKG showed sinus rhythm with premature atrial complexes. She will currently receive vancomycin and cefepime in the emergency room for possible pneumonia. PAST MEDICAL HISTORY: 1. Coronary artery disease, status post CABG last month. 2. Hypertension. 3. Hyperlipidemia. 4. Obesity. 5. Degenerative joint disease. 6. Atrial flutter, status post ablation last month. PAST SURGICAL HISTORY: 1. Tonsillectomy. 2. Coronary artery bypass grafting. 3. Cholecystectomy. 4. Hysterectomy. 5. Ablation for atrial flutter. 6. Arthroscopic knee surgery. ALLERGIES: NO KNOWN DRUG ALLERGIES. CURRENT HOME MEDICATIONS: 1. Amiodarone 200 mg daily. 2. Amlodipine 5 mg daily. 3. Calcium with vitamin D daily. 4. Colace 100 mg daily. 5. Glucosamine 1 tablet daily. 6. Hydrochlorothiazide 12.5 mg daily. 7. Losartan 50 mg b.i.d. 8. Multivitamin 1 tablet daily. 9. Omeprazole every other day. 10. Eliquis 5 mg b.i.d. 11. Lopressor 50 mg b.i.d. 12. Sublingual nitroglycerin as needed. SOCIAL HISTORY: The patient currently lives at home with her family. She makes her own decision with the help of her family. She is full code. FAMILY HISTORY: Mother with hypertension. REVIEW OF SYSTEMS: All other review of systems were reviewed and were found negative. PHYSICAL EXAMINATION: VITAL SIGNS: As discussed above. GENERAL: A 73-year-old female, in no apparent distress. Denies any chest discomfort. HEENT: Head, atraumatic and normocephalic. Sclerae anicteric. Moist mucous membranes. No oral lesion. NECK: Supple. No JVD appreciated. No carotid bruit. LUNGS: Showed diminished air entry at bilateral bases with scattered rales especially at bases. No significant rhonchi or wheezing noted. No accessory muscle use. HEART: S1 and S2 present. Regular rate and rhythm. Well healing midline CABG incision. No heaves or pulsation. ABDOMEN: Soft, nontender. Bowel sounds present. EXTREMITIES: 1+ edema in bilateral lower extremity. No calf tenderness. SKIN: Warm and dry. LYMPH NODES: No palpable lymph nodes in the neck. PERIPHERAL VASCULAR: Radial pulses palpable bilaterally. MUSCULOSKELETAL: No joint swelling or tenderness. LABORATORY FINDINGS: EKG by my review as discussed above. Chest x-ray and CT scan of the chest by my review as discussed above. WBC 7.0 with neutrophils of 64.9%. Platelet count 296, with hemoglobin 11.9. Sodium 138, potassium 3.4, chloride 104, bicarb 23, BUN 15, and creatinine 1.06. BNP was 81. Lactic acid normal. LFTs in normal range. ABG showed pH 7.49 with pCO2 of 29.7, PO2 99.8 on 2 L nasal cannula. IMPRESSION: 1. Acute hypoxic respiratory failure, probably secondary to atelectasis. 2. Palpitations. 3. Coronary artery disease, status post recent coronary artery bypass graft. 4. Atrial fibrillation, post coronary artery bypass graft, currently on amiodarone, and metoprolol, as well as Eliquis. 5. Atrial flutter, status post ablation last month. 6. Hypertension. 7. Degenerative joint disease. PLAN: The patient will be monitored in the telemetry unit as observation. All of her home medications will be restarted including beta blockers, anticoagulation, and amiodarone. We will hold antibiotics for now since there is no evidence of infection on the imaging. She does not have leukocytosis. We will confirm official CT scan report before continuing antibiotics. We will replace potassium. We will recheck labs in a.m. Consult Cardiology, Dr. Pathak. Continue cardiac rehab. Plan of care was discussed with the patient and the family in detail. They stated understanding. Job ID: [id number]
[2018-07-07 08:34] VITALS: BMI 36.8
--- NOTE | 2018-07-07 08:37 | RAD ---
SINGLE VIEW OF THE CHEST: COMPARISON: 06/05/2018. HISTORY: Shortness of breath. FINDINGS: A single view of the chest shows a normal-size cardiomediastinal silhouette. The patient is status p ost sternotomy. There is blunting of both costophrenic angles which may represent atelectasis or sma ll pleural effusions. IMPRESSION: Bibasilar atelectasis. POS: [facility]
[2018-07-07 08:57] LABS: Troponin I 0.016 ng/mL (< 0.028)
[2018-07-07] MEDS: Docusate 100 MG CAP PO SCH (09:50)
[2018-07-07] MEDS: Losartan 25 MG TAB PO SCH ×2 (09:50→20:52)
[2018-07-07] MEDS: Hydrochlorothiazide 25 MG TAB PO SCH (09:50)
[2018-07-07] MEDS: Amlodipine 5 MG TAB PO SCH (09:50)
[2018-07-07] MEDS: Amiodarone 200 MG TAB PO SCH (09:50)
[2018-07-07] MEDS: Apixaban 5 MG TAB PO SCH ×2 (09:50→20:51)
[2018-07-07] MEDS: Calcium Carbonate + Vit D 1 TAB PO SCH (09:50)
[2018-07-07] MEDS: Metoprolol Tartrate 50 MG TAB PO SCH ×2 (09:50→20:51)
--- NOTE | 2018-07-07 11:27 | CT ---
PRELIMINARY REPORT/[facility]/EMERGENCY AFTER HOURS PROCEDURE: EXAM: CT Angiography Chest With Contrast EXAM DATE/TIME: 07/07/2018 4:27 AM CLINICAL HISTORY: 73 years old, female; Signs and symptoms; Dyspnea and shortness of breath; Prior surgery; Surgery helder e: 1-6 months; Surgery type: Er 5; Patient laid down to go to sleep and started having palpitations " it felt like it was flip flopping" had double bypass 2/4. Denies pain, reports some SOB that also sta rted tonight TECHNIQUE: Axial computed tomographic angiography images of the chest with intravenous contrast using CT angiogr aphy protocol. MIP reconstructed images were created and reviewed. COMPARISON: No relevant prior studies available. FINDINGS: Pulmonary arteries: No evidence of a pulmonary embolism. Aorta: Atherosclerotic changes of the thoracic aorta without aneurysm. Ectasia of the ascending thora cic aorta. Lungs: Bibasilar subsegmental atelectasis. Pleural space: Trace right pleural effusion. Heart: Surgical changes of coronary artery bypass. The heart is mildly enlarged. Trace pericardial ef fusion. Mild fat stranding in the anterior mediastinum consistent with recent coronary artery bypass. Lymph nodes: Coarsely calcified subcarinal lymph node. Bones/joints: Recent sternotomy. No associated abnormal fluid collections. Soft tissues: Mild fat stranding anterior chest subcutaneous tissues consistent with recent surgery. IMPRESSION: 1. No evidence of a pulmonary embolism. 2. Bibasilar subsegmental atelectasis and trace right pleural effusion. 3. Surgical changes of recent coronary artery bypass. Thank you for allowing us to participate in the care of your patient. Dictated and Authenticated by: Janelle Luis MD 07/07/2018 4:48 AM Central Time ([place] & [place]) FINAL REPORT EMERGENT AFTER HOURS CA OF THE CHEST WITH CONTRAST: TECHNIQUE: Multiple contiguous axial images were obtained in a CTA of the chest with contrast per pulmonary embo lism protocol. Three-D oblique MIP reformats were performed. FINDINGS/IMPRESSION: I agree with the findings and impression given in the preliminary report per [facility] physician. 1. No evidence of pulmonary thromboembolism. 2. Small right pleural effusion. 3. Bibasilar atelectasis. POS: [facility]
[2018-07-07 11:45] LABS: Troponin I 0.016 ng/mL (< 0.028)
--- NOTE | 2018-07-07 12:35 | PDOC.PN ---
- Subjective Encounter Start Date: 07/07/18 Encounter Start Time: 07:40 Pt seen for followup re: acute hypoxic respiratory failure. Pt denies chest pain, shortness of breath, fevers or chills. - Objective Resuscitation Status - Order Detail: 07/07/18 06:14 Resuscitation Status Routine Resuscitation Status: FULL: Full Resuscitation MAR Reviewed: Yes Vital Signs & Weight: Vital Signs (12 hours) Temp Pulse Resp BP Pulse Ox 07/07/18 12:07 98.1 F 70 18 130/69 97 07/07/18 07:30 98.4 F 69 16 145/65 H 98 Weight Weight 201 lb 6.4 oz Result Diagrams: 07/07/18 03:05 07/07/18 03:05 EKG Reviewed by me: Yes (tele: NSR) Phys Exam - Physical Examination Constitutional: NAD HEENT: moist MMs Neck: supple Respiratory: clear to auscultation bilateral Cardiovascular: RRR Gastrointestinal: soft Neurological: moves all 4 limbs Psychiatric: normal affect Dx/Plan (1) Acute respiratory failure with hypoxia Code(s): J96.01 - ACUTE RESPIRATORY FAILURE WITH HYPOXIA Status: Acute Comment: due to atelectasis; no evidence of infection (2) Atelectasis of both lungs Code(s): J98.11 - ATELECTASIS Status: Acute Comment: pt encouraged to use incentive spirometry (3) CAD (coronary artery disease) Code(s): I25.10 - ATHSCL HEART DISEASE OF [place] CORONARY ARTERY W/O ANG PCTRS Status: Chronic Comment: stable, s/p CABG (4) HTN (hypertension) Code(s): I10 - ESSENTIAL (PRIMARY) HYPERTENSION Status: Chronic Comment: controlled (5) Afib Code(s): I48.91 - UNSPECIFIED ATRIAL FIBRILLATION Status: Chronic Comment: continue apixaban, pt is in sinus rhythm now - Plan * . Review of Systems - Review of Systems Respiratory: negative: Cough, Shortness of Breath, SOB with Excertion, Pleuritic Pain, Wheezing Cardiovascular: negative: chest pain, palpitations, orthopnea, paroxysmal nocturnal dyspnea, edema, light headedness - Medications/Allergies Allergies/Adverse Reactions: Allergies Allergy/AdvReac Type Severity Reaction Status Date / Time No Known Allergies Allergy Verified 07/07/18 11:35 Medications: Current Medications Acetaminophen (Tylenol) 650 mg PO Q4H PRN PRN Reason: Headache/Fever/Mild Pain (1-3) Amiodarone HCl (Cordarone) 200 mg PO DAILY [facility] Last Admin: 07/07/18 09:50 Dose: 200 mg Amlodipine Besylate (Norvasc) 5 mg PO DAILY [facility] Last Admin: 07/07/18 09:50 Dose: 5 mg Apixaban (Eliquis) 5 mg PO BID [facility] Last Admin: 07/07/18 09:50 Dose: 5 mg Calcium Carbonate (Tums) 1,000 mg PO Q4H PRN PRN Reason: Heartburn or Indigestion Calcium/Vitamin D (Caltrate 600 + Vit D) 1 tab PO DAILY [facility] Last Admin: 07/07/18 09:50 Dose: 1 tab Docusate Sodium (Colace) 100 mg PO DAILY [facility] Last Admin: 07/07/18 09:50 Dose: 100 mg Hydrochlorothiazide (Hydrochlorothiazide) 12.5 mg PO DAILY [facility] Last Admin: 07/07/18 09:50 Dose: 12.5 mg Losartan Potassium (Cozaar) 50 mg PO BID [facility] Last Admin: 07/07/18 09:50 Dose: 50 mg Metoprolol Tartrate (Lopressor) 50 mg PO BID [facility] Last Admin: 07/07/18 09:50 Dose: 50 mg Nitroglycerin (Nitrostat) 0.4 mg PO Q5MIN PRN PRN Reason: Chest Pain Senna/Docusate Sodium (Senokot S) 2 tab PO BID PRN PRN Reason: Constipation Sodium Chloride (Flush - Normal Saline) 10 ml IVF PRN PRN PRN Reason: Saline Flush Sodium Chloride (Flush - Normal Saline) 10 ml IVF PRN PRN PRN Reason: Saline Flush
[2018-07-07] MEDS ORDERED: ISOVUE-370 76%-LOCM 1 ML ONE (13:10)
--- NOTE | 2018-07-07 15:51 | CON ---
DATE OF CONSULTATION: 07/07/2018 REASON FOR CONSULTATION: Palpitations. PRIMARY PROCESSING SPECIALIST: Dr. Anish Arias. HISTORY OF PRESENT ILLNESS: Ms. Gomez is a 73-year-old woman who recently underwent bypass surgery on 06/03/[address] Manuel Scott. She underwent CABG x2 with CELIS to the LAD with sequential graft to the diagonal branch. She states she was in normal state of health after going home when she developed palpitations. She states she was sitting on a couch and developed intermittent heart fluttering. She was seen in the emergency room and placed on observation. She did have PACs present on the monitor. No chest pain, pressure, or associated symptoms. PAST MEDICAL HISTORY: Has been reviewed. PHYSICAL EXAMINATION: GENERAL: Patient is a pleasant female who is in no acute distress. The patient appears their stated age. VITAL SIGNS: Blood pressure 130/69, pulse 70, and temperature 98.1. NEUROLOGIC: The patient is alert and oriented x3 with no focal neurologic deficits. HEENT: Sclerae without icterus. Mouth has moist mucous membranes with normal pallor. NECK: No JVD. Carotid upstroke brisk. No bruits bilaterally. LUNGS: Clear to auscultation with unlabored respirations. BACK: No scoliosis or kyphosis. CARDIAC: Regular rate and rhythm with normal S1 and S2. No S3 or S4 noted. No significant rubs, murmurs, thrills, or gallops noted throughout the precordium. PMI is not displaced. There is no parasternal heave. ABDOMEN: Soft, nontender, nondistended. No peritoneal signs present. No hepatosplenomegaly. No abnormal striae. EXTREMITIES: 2+ femoral and 2+ dorsalis pedis pulses. No cyanosis, clubbing, or edema. SKIN: No gross abnormalities. PERTINENT LABORATORY DATA: Hemoglobin 11.9. Creatinine 1.06. IMPRESSION: 1. Palpitations. 2. Coronary artery disease. 3. Status post bypass surgery. RECOMMENDATIONS: Palpitations are likely related to PACs. Reassurance is provided. We will continue beta-preston therapy. May consider increasing her dose. We will continue to monitor overnight. Further recommendations per Dr. Anish Arias in the a.m. Job ID: [id number]
[2018-07-08 05:50] LABS: Anion Gap 13 mmol/L (10-20); BUN (Urea Nitrogen) 9 mg/dL (9.8-20.1); Calc. Creatinine Clearance 78 mL/min (70-130); Calcium 9.5 mg/dL (7.8-10.44); Carbon Dioxide 26 mmol/L (23-31); Chloride 102 mmol/L (98-107); Estimated GFR-MDRD 59; Glucose 92 mg/dL (83-110); Sodium 137 mmol/L (136-145)
[2018-07-08] MEDS: Docusate 100 MG CAP PO SCH (09:03)
[2018-07-08] MEDS: Apixaban 5 MG TAB PO SCH (09:03)
[2018-07-08] MEDS: Amlodipine 5 MG TAB PO SCH (09:04)
[2018-07-08] MEDS: Calcium Carbonate + Vit D 1 TAB PO SCH (09:04)
[2018-07-08] MEDS: Hydrochlorothiazide 25 MG TAB PO SCH (09:05)
[2018-07-08] MEDS: Metoprolol Tartrate 50 MG TAB PO SCH (09:05)
[2018-07-08] MEDS: Amiodarone 200 MG TAB PO SCH (09:06)
[2018-07-08] MEDS: Losartan 25 MG TAB PO SCH (09:06)
--- NOTE | 2018-07-08 09:18 | PDOC.PN ---
- Subjective Encounter Start Date: 07/08/18 Encounter Start Time: 10:20 Subjective: Patient without further palpitations. Off O2 and sating well. No -: cough. No SOB. No wheezing. Ambulating well. Ready to go home. - Objective Resuscitation Status - Order Detail: 07/07/18 06:14 Resuscitation Status Routine Resuscitation Status: FULL: Full Resuscitation MAR Reviewed: Yes Vital Signs & Weight: Vital Signs (12 hours) Temp Pulse Resp BP Pulse Ox 07/08/18 09:04 77 07/08/18 08:00 97.8 F 77 18 116/63 95 07/08/18 03:18 95 07/07/18 23:40 98.2 F 72 20 126/68 94 L Weight Weight 201 lb 6.4 oz I&O: 07/07/18 07/08/18 07/09/18 06:59 06:59 06:59 Intake Total 1110 Output Total 2725 Balance -1615 Result Diagrams: 07/07/18 03:05 07/08/18 04:47 Phys Exam - Physical Examination Constitutional: NAD HEENT: moist MMs Respiratory: no wheezing, no rales, no rhonchi sternotomy incision healing well Cardiovascular: RRR, no significant murmur no ectopic beats Gastrointestinal: soft, positive bowel sounds Neurological: non-focal, moves all 4 limbs Psychiatric: normal affect, A&O x 3 Dx/Plan (1) Palpitations Code(s): R00.2 - PALPITATIONS Status: Acute Comment: PACs, Dr. Arias following (2) Acute respiratory failure with hypoxia Code(s): J96.01 - ACUTE RESPIRATORY FAILURE WITH HYPOXIA Status: Resolved Comment: due to atelectasis; no evidence of infection, sating well on room air now (3) Atelectasis of both lungs Code(s): J98.11 - ATELECTASIS Status: Acute Comment: pt encouraged to use incentive spirometry (4) Afib Code(s): I48.91 - UNSPECIFIED ATRIAL FIBRILLATION Status: Chronic Comment: continue apixaban, pt is in sinus rhythm now (5) CAD (coronary artery disease) Code(s): I25.10 - ATHSCL HEART DISEASE OF [place] CORONARY ARTERY W/O ANG PCTRS Status: Chronic Comment: stable, s/p CABG (6) Dyslipidemia Code(s): E78.5 - HYPERLIPIDEMIA, UNSPECIFIED Status: Chronic (7) HTN (hypertension) Code(s): I10 - ESSENTIAL (PRIMARY) HYPERTENSION Status: Chronic Comment: controlled - Plan cont current plan of care, incentive spirometry Will discuss with Dr. Arias and d/c home if ok with her. * . - Discharge Day Encounter end time: 10:30
[2018-07-08 12:03] VITALS: BP 112/69; TEMP 98.1
--- NOTE | 2018-07-09 04:36 | DIS ---
DATE OF ADMISSION: 07/07/2018 DATE OF DISCHARGE: 07/08/2018 PRIMARY CARE PHYSICIAN: Kelly Mora MD REASON FOR ADMISSION: Palpitations and hypoxia. DIAGNOSES AT DISCHARGE: 1. Palpitations, premature atrial contractions, resolved. 2. Acute respiratory failure with hypoxia, resolved. 3. Atelectasis of both lungs, resolved. 4. Paroxysmal atrial fibrillation, in normal sinus rhythm. 5. Coronary artery disease status post coronary artery bypass graft, stable. 6. Dyslipidemia. 7. Hypertension. PROCEDURES: CT of the chest and thorax with contrast showing no evidence for pulmonary thromboembolism, small right pleural effusion, and basilar atelectasis. CONSULTATIONS: Cardiology, Dr. Pathak for Dr. Arias. SUMMARY OF HOSPITAL COURSE: This is a 73-year-old white female, who was recently admitted for coronary artery bypass grafting. Post CABG, she was found to be in atrial fibrillation, required ablation and discharged home on amiodarone taper as well as metoprolol and Eliquis. The patient started having palpitations while she was lying in her bed and some mild shortness of breath that started during the ambulance ride. In the emergency room, she was found to have an O2 saturation of 88% on room air. Chest x-ray was negative. CT scan of the chest showed as above. Her EKG shows sinus rhythm with premature atrial complexes. The patient was put in observation in the hospital. She had no further PACs on the monitor and felt no more palpitations. Dr. Pathak was consulted for Dr. Arias. He determined that the PACs were not dangerous and that he will continue her beta preston for control. The patient had resolution of her shortness of breath in the hospital. She did incentive spirometry and was able to be taken off the oxygen and was saturating 95%. She was asymptomatic on the day of discharge and is being discharged home. DISCHARGE MANAGEMENT: Discharged home. FOLLOWUP: Follow up with Dr. Mora in 7 days. ACTIVITY: As tolerated. DIET: Healthy heart low-sodium diet. EQUIPMENT: The patient is to continue using her incentive spirometer at home. DISCHARGE MEDICATIONS: Resume all home medications. 1. Amiodarone 200 mg daily. 2. Amlodipine 5 mg daily. 3. Eliquis 5 mg twice a day. 4. Calcium 600 + vitamin D, 1 tablet daily. 5. Colace 100 mg daily. 6. Glucosamine chondroitin 1 cap daily. 7. Hydrochlorothiazide 12.5 mg daily. 8. Losartan 50 mg twice a day. 9. Lutein 15 mg soft gel one cap daily. 10. Metoprolol 50 mg twice a day. 11. Multivitamin daily. 12. Nitroglycerin as needed. 13. Omeprazole 20 mg daily. 14. Super B-50 complex one cap daily. Job ID: [id number]
== END 2018-07-08 14:20 | disposition home or self-care (01) ==
LOC: ERS 01:38 → 2SW 07:50
PROVIDERS: ADMIT Internal Medicine; ATTEND Internal Medicine
DX: I49.1 Atrial premature depolarization (principal); J98.11 Atelectasis; J96.01 Acute respiratory failure with hypoxia; I48.0 Paroxysmal atrial fibrillation; I25.10 Atherosclerotic heart disease of native coronary artery without angina pectoris; E78.5 Hyperlipidemia, unspecified; I10 Essential (primary) hypertension; M19.90 Unspecified osteoarthritis, unspecified site; I48.2 Chronic atrial fibrillation; E66.9 Obesity, unspecified; Z68.36 Body mass index [BMI] 36.0-36.9, adult; Z79.01 Long term (current) use of anticoagulants; Z79.899 Other long term (current) drug therapy; Z95.1 Presence of aortocoronary bypass graft
CPT/HCPCS: 71045; 71275; 80048; 80053; 82805; 83605; 83735; 83880; 84484 ×2; 85025; 85379; 87040; 93005; 94760; 96365; 96366; 96367; 99285; G0378 ×2; 36415; 96375; J0692; J3370; J7050; J7070; Q9966

== ENCOUNTER → 2018-07-16 | Day surgery (SDC) | payer MEDICARE, OTHER ==
[2018-07-08 14:57] VITALS: BMI 36.6
[~2018-07-16] MED LIST: PROPOFOL 20 ML ONE; PROPOFOL 200 MG/20 ML VIAL ONE
--- NOTE | 2018-07-16 23:08 | DIS ---
The diagnosis for the transesophageal cardiogram was planned. She has a history of atrial flutter. Shyam lynch was being evaluated to consider stopping her Eliquis to ensure that the left atrial appendage was f ully occluded. She did undergo bypass surgery and had two vessel bypass and ligation of the left atri al appendage in May 2018. She had postoperative atrial fibrillation and flutter and underwent ab lation. At this time we are just evaluating to determine whether or not for sure the left atrial appe ndage was ligated. DIAGNOSES: 1. Coronary artery disease. 2. Hypertension. 3. 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 4. History of emphysema and venous insufficiency. DISCHARGE DIAGNOSIS: 1. Coronary artery disease. 2. Hypertension. 3. 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 4. History of emphysema and venous insufficiency. PROCEDURE: Transesophageal echocardiogram without any electrical shocks. FOLLOWUP: Her followup will be with me in one month in the office. She will continue her followups with electro physiology as requested. DISCHARGE MEDICATIONS: Amiodarone 200 mg a day, Amlodipine 5 mg a day, calcium with vitamin D one tablet a day 600/125. Cola ce 100 mg q. day, glucosamine chondroitin sulfate one capsule q. day, hydrochlorothiazide 12.5 mg onc e a day, Losartan 50 mg q. day, Lutein soft gel 15 mg once a day, Metoprolol 50 mg b.i.d. and multivi tamins and nitroglycerin as needed. There were no complications or difficulties encountered. She was seen in the outpatient facility were she underwent transesophageal echocardiogram today and there was no evidence of a left atrial append age remaining. It appears to have been fully ligated and remains ligated. There were no complications or intracardiac thrombus noted. She did have mild mitral and tricuspid valve regurgitation. Ejectio n fracture was normal about 60%. She had no complications during the procedure after she was given sh ort acting propofol and the transesophageal probe was easily passed. When she is awake and stable, shyam lynch will be discharged home and I will see her back in the office in about one month.
--- NOTE | 2018-07-16 23:12 | ECHO ---
DATE OF PROCEDURE: 07/16/18 INDICATIONS FOR PROCEDURE: 73-year-old female status post atrial flutter ablation. She has had bypass surgery with ligation of t he left atrial appendage. She was placed on Eliquis after the ablation. She was advised to undergo a transesophageal echocardiogram just to ensure that the left atrial appendage was occluded and in hop es that we could stop her Eliquis. She was taken to the recovery area where she underwent the procedure without difficulties or complica tions. She was given short acting propofol for the procedure. The transesophageal probe was easily passed do wn the distal esophagus. The impressions are as follows 1. No evidence of a left atrial appendage noted. It appears to be fully ligated. 2. Normal left ventricular systolic function. Ejection fraction estimated at 60%. 3. Mild mitral valve regurgitation. 4. Mild tricuspid valve regurgitation. There were no difficulties or complications encountered. The patient tolerated the procedure well.
--- NOTE | 2018-07-19 16:31 | EKG ---
Test Reason : PREOP DHAVLA/CARDIOVERS Blood Pressure : / mmHG Vent. Rate : 087 BPM Atrial Rate : 087 BPM P-R Int : 170 ms QRS Dur : 084 ms QT Int : 378 ms P-R-T Axes : 044 -23 081 degrees QTc Int : 454 ms Normal sinus rhythm Nonspecific T wave abnormality Abnormal ECG When compared with ECG of 07-JUL-2018 02:02, Premature atrial complexes are no longer Present Confirmed by DR. Jac HERMAN ([id number]) on 07/19/2018 4:30:54 PM Referred By: MARCUS Confirmed By:DR. Jac HERMAN
== END ==
LOC: CCL 09:55
PROVIDERS: ATTEND Internal Medicine Cardiovascular Disease
PROC: B24BZZ4 Ultrasonography of Heart with Aorta, Transesophageal (ICD-10-PCS; principal; 2018-07-16)
DX: I25.10 Atherosclerotic heart disease of native coronary artery without angina pectoris (principal); I10 Essential (primary) hypertension; I77.810 Thoracic aortic ectasia; I48.0 Paroxysmal atrial fibrillation; R60.0 Localized edema; Z87.09 Personal history of other diseases of the respiratory system; Z79.01 Long term (current) use of anticoagulants; Z79.82 Long term (current) use of aspirin; Z79.899 Other long term (current) drug therapy; Z87.891 Personal history of nicotine dependence; Z95.2 Presence of prosthetic heart valve; I08.1 Rheumatic disorders of both mitral and tricuspid valves
CPT/HCPCS: 93005; 93010; 93312; J2704

== ENCOUNTER 2019-02-15 15:26 | Emergency (ER) | payer MEDICARE, OTHER ==
[2019-02-15 16:09] LABS: #Eosinphils 0.4 thou/uL (0.0-0.7); #Lymphocytes 1.8 thou/uL (1.20-3.40); #Monocytes 0.6 thou/uL (0.11-0.59); #Neutrophils 4.4 thou/uL (1.40-6.50); %Basophils 0.6 % (0.0-1.0); %Eosinophils 4.9 % (0.0-10.0); %Lymphocytes 25.7 % (21.0-51.0); %Monocytes 7.7 % (0.0-10.0); %Neutrophils 61.1 % (42.0-75.0); Mean Corpuscular HGB CONC 34.5 g/dL (32.0-36.0); Mean Corpuscular Hemoglobin 31.9 pg (27.0-31.0); Mean Corpuscular Volume 92.4 fL (78.0-98.0); Mean Platelet Volume 7.7 fL (7.4-10.4); Platelet Count 223 thou/uL (130-400); RBC Distribution Width 12.6 % (11.5-14.5); White Blood Cell (WBC) Count 7.2 thou/uL (4.8-10.8)
[2019-02-15 16:33] LABS: ALT (SGPT) 15 U/L (8-55); AST (SGOT) 22 U/L (5-34); Albumin 4.1 g/dL (3.4-4.8); Alkaline Phosphatase 65 U/L (40-110); Anion Gap 12 mmol/L (10-20); BUN (Urea Nitrogen) 13 mg/dL (9.8-20.1); Bilirubin, Total 0.7 mg/dL (0.2-1.2); Calc. Creatinine Clearance 0 mL/min (70-130); Carbon Dioxide 27 mmol/L (23-31); Chloride 102 mmol/L (98-107); Estimated GFR-MDRD 49; Glucose 93 mg/dL (83-110); Lipase 22 U/L (8-78); Potassium 3.7 mmol/L (3.5-5.1); Protein, Total 7.1 g/dL (6.0-8.3); Sodium 137 mmol/L (136-145)
--- NOTE | 2019-02-15 16:39 | RAD ---
EXAM: Single view of the chest HISTORY: Chest pain COMPARISON: 07/07/2018 FINDINGS: Single view of the chest shows a normal sized cardiomediastinal silhouette. The patient is status post sternotomy. There is no evidence of consolidation, mass, or pleural effusion. The bones are unremarkable. IMPRESSION: No evidence of acute cardiopulmonary disease
[2019-02-15 19:31] LABS: Troponin I Less than 0.010 ng/mL (< 0.028)
== END 2019-02-15 20:14 | disposition home or self-care (01) ==
LOC: ERS 15:26
DX: R07.89 Other chest pain (principal); I10 Essential (primary) hypertension; I48.91 Unspecified atrial fibrillation; E78.5 Hyperlipidemia, unspecified; Z79.899 Other long term (current) drug therapy; Z87.891 Personal history of nicotine dependence
CPT/HCPCS: 36415; 71045; 80053; 83690; 84484; 85025; 93005

== ENCOUNTER 2019-03-19 14:44 | Outpatient (CLI) | payer MEDICARE, OTHER ==
--- NOTE | 2019-03-19 17:06 | MMO ---
Bilateral MAMMO Bilat Screen [facility]. CLINICAL HISTORY: Patient is 74 years old and is seen for screening. The patient has the following family history of breast cancer: cousin female, malignant (generic), [address] The patient has no personal history of cancer. VIEWS: The views performed were: bilateral craniocaudal with tomosynthesis and bilateral mediolateral oblique with tomosynthesis. FILMS COMPARED: The present examination has been compared to prior imaging studies performed at [facility] on 08/11/2014, 09/01/2015, 10/18/2016 and 03/06/2018. This study has been interpreted with the assistance of computer-aided detection. MAMMOGRAM FINDINGS: There are scattered fibroglandular densities. Benign calcifications are noted bilaterally. There are no suspicious masses, suspicious calcifications, or new areas of architectural distortion. IMPRESSION: THERE IS NO MAMMOGRAPHIC EVIDENCE OF MALIGNANCY. A ROUTINE FOLLOW-UP MAMMOGRAM IN 1 YEAR IS RECOMMENDED. THE RESULTS OF THIS EXAM WERE SENT TO THE PATIENT. ACR BI-RADS Category 2 - Benign finding MAMMOGRAPHY NOTE: 1. A negative mammogram report should not delay a biopsy if a dominant of clinically suspicious mass is present. 2. Approximately 10% to 15% of breast cancers are not detected by mammography. 3. Adenosis and dense breasts may obscure an underlying neoplasm. Reported by: NAM DURANT MD Electonically Signed: [id number]
== END 2019-03-19 14:45 | disposition home or self-care (01) ==
LOC: BICMAMMO 14:44
PROVIDERS: ATTEND Family Medicine
DX: Z12.31 Encounter for screening mammogram for malignant neoplasm of breast (principal); Z80.3 Family history of malignant neoplasm of breast
CPT/HCPCS: 77063; 77067

== ENCOUNTER 2019-10-29 09:04 | Outpatient (CLI) | payer MEDICARE, OTHER ==
--- NOTE | 2019-10-29 10:15 | CT ---
Exam: CT angiogram of the chest HISTORY: Evaluate thoracic aorta aneurysm COMPARISON: None TECHNIQUE: CT angiogram of the chest is performed in the axial plane. Sagittal and coronal three-dime nsional reformatted images are submitted for interpretation FINDINGS: Mediastinum: Nonenlarged mediastinal lymph nodes are noted. No mass or hematoma Left and right hilum: No lymphadenopathy HEART: Upper normal heart size. No significant pericardial fluid Upper abdomen: No acute abnormality. Surgically absent gallbladder Trachea and central bronchi: Patent Pleural spaces: No effusion Pneumothorax: None. Right lung: Chronic changes. Stable bleb in the right lower lobe. Left lung Stable calcified granuloma in the left upper lobe and calcified subcarinal lymph node. No lytic or blastic lesions within the osseous structures. CT ANGIOGRAM: The root of the aorta aorta has a normal appearance. The ascending thoracic aorta measu res 3.9 x 3.9 cm at the main pulmonary trunk. The aortic arch and descending thoracic aorta have a normal caliber. Minimal atherosclerosis. Minimal atherosclerosis and normal caliber the visualized ab dominal aorta. No evidence of dissection throughout the visualized aorta. The origin of the great vessels of the neck and visualized great vessels of the neck appear to be patent. IMPRESSION: No evidence of aneurysm in the visualized aorta.
[2019-10-29] MEDS ORDERED: Iopamidol 370 76% 100 ML VIAL ONE (16:28)
== END 2019-10-29 09:05 | disposition home or self-care (01) ==
LOC: CT 09:04
PROVIDERS: ATTEND Internal Medicine Cardiovascular Disease
DX: I71.2 Thoracic aortic aneurysm, without rupture (principal)
CPT/HCPCS: 71275; 82565; Q9967

== ENCOUNTER 2020-06-10 11:00 | Inpatient (IN) | payer MEDICARE, OTHER ==
[2020-06-11 12:07] VITALS: BMI 36.6
[2020-06-29] MEDS ORDERED: Vancomycin 1.5 GRAM/300 ML BAG ONE (07:45)
[2020-06-29] MEDS ORDERED: Sodium Chloride 0.9% 100 ML ONE (07:46)
[2020-06-29] MEDS ORDERED: Tranexamic Acid 1,000 MG/10 ML VIAL ONE (07:46)
[2020-06-29] MEDS ORDERED: Fentanyl 100 MCG/2 ML VIAL ONE ×3 (08:03→09:28)
[2020-06-29] MEDS ORDERED: Midazolam HCl 2 mg/2 ml Vial ONE ×2 (08:03→08:55)
[2020-06-29] MEDS ORDERED: EPINEPHrine 1 MG/ML AMP ONE (09:15)
[2020-06-29] MEDS ORDERED: Bupivacaine 0.25% HCL 30 ML VIAL ONE (09:15)
[2020-06-29] MEDS ORDERED: Ondansetron PF 4 MG/2 ML Vial ONE ×3 (09:18→13:22)
[2020-06-29] MEDS ORDERED: Ondansetron PF 4 MG/2 ML Vial IVP PRN ×2 (09:30→15:32)
[2020-06-29] MEDS ORDERED: traMADol HCl 50 MG TAB PO PRN ×3 (09:30→15:32)
[2020-06-29] MEDS ORDERED: Promethazine HCl 25 MG/ML VIAL IM PRN ×2 (09:30→15:32)
[2020-06-29] MEDS ORDERED: Zolpidem Tartrate 5 MG TAB PO PRN ×2 (09:30→15:32)
[2020-06-29] MEDS ORDERED: HYDROcodone/Acetaminophen 10/325 mg Tablet PO PRN ×4 (09:30→15:32)
[2020-06-29] MEDS ORDERED: Ropivacaine 0.2% 550 ML 550 ML NERVE BLCK SCH (09:30)
[2020-06-29] MEDS ORDERED: Fentanyl 100 MCG/2 ML VIAL IV PRN (09:31)
[2020-06-29] MEDS ORDERED: PROPOFOL 200 MG/20 ML VIAL ONE (10:42)
[2020-06-29] MEDS ORDERED: Ropivacaine 2% HCl/PF (20 MG/10 ML VIAL) ONE (10:42)
[2020-06-29] MEDS ORDERED: Ketorolac Tromethamine 30 MG/ML VIAL ONE (10:42)
[2020-06-29] MEDS ORDERED: Dexamethasone 20 MG/5 ML VIAL ONE (10:42)
[2020-06-29] MEDS ORDERED: PHENYLEPHRINE-NS 100 MCG/ML 10 ML SYRINGE ONE (10:42)
[2020-06-29] MEDS ORDERED: ePHEDrine 50 MG/ML VIAL ONE (10:42)
[2020-06-29] MEDS ORDERED: Bupivacaine HCl 0.5%/Epinephrine 1:200,000/PF 30 ml Vial ONE (10:42)
[2020-06-29] MEDS ORDERED: Scopolamine 1.5 mg/72 hour Patch ONE (13:56)
--- NOTE | 2020-06-29 14:54 | RAD ---
RIGHT KNEE TWO VIEWS: 06/29/20 HISTORY: Postop. A total knee prosthesis has been placed with good position. No evidence of fracture. IMPRESSION: Placement of total knee prosthesis. POS: MYRA
[2020-06-29] MEDS ORDERED: diphenhydrAMINE 25 MG CAP PO PRN (15:32)
[2020-06-29] MEDS ORDERED: Fentanyl 100 MCG/2 ML VIAL SLOW IVP PRN ×2 (15:32)
[2020-06-29] MEDS ORDERED: Nitroglycerin 0.4 MG TAB (25 Tab Bottle) SL PRN (17:08)
[2020-06-29] MEDS ORDERED: Scopolamine 1.5 mg/72 hour Patch TOP SCH (17:15)
[2020-06-29] MEDS: CEFAZOLIN 2 GM in Premix Bag 1 BAG IVPB SCH (17:28)
[2020-06-29] MEDS: Sodium Chloride 0.9% 1,000 ML IV SCH (17:29)
--- NOTE | 2020-06-29 19:45 | PDOC.HOSPP ---
- Subjective Encounter Date: 06/29/20 Encounter Time: 19:44 Subjective: Patient seen and examined for medical management. Patient denies any complaints at this time. No chest pain, shortness of breath, nausea, vomiting or palpitations reported. Pain controlled. PAST MEDICAL HISTORY: Coronary artery disease s/p CABG in 2019, hypertension, hyperlipidemia, atrial flutter requiring ablation in 2019, degenerative joint disease PAST SURGICAL HISTORY: Tonsillectomy, CABG, cholecystectomy, hysterectomy, atrial flutter ablation, knee surgery ALLERGIES: No known drug allergies SOCIAL HISTORY: Currently lives at home with her family. No smoking alcohol or drug use reported. FAMILY HISTORY: Mother with hypertension - Objective Vital Signs & Weight: Vital Signs (12 hours) Temp Pulse Resp BP Pulse Ox 06/29/20 16:00 97.1 F L 79 18 137/80 100 Weight Weight 200 lb I&O: 06/28/20 06/29/20 06/30/20 06:59 06:59 06:59 Intake Total 250 Output Total 200 Balance 50 Additional Labs: Laboratory Tests 06/10/20 06/10/20 12:28 12:28 Hgb 14.9 Hct 44.3 Sodium 140 Potassium 3.9 BUN 10 Creatinine 0.80 Radiology Reviewed by me: Yes (Knee XR - reviewed) EKG Reviewed by me: Yes (SR) Hospitalist ROS - Review of Systems Respiratory: denies: cough, dry, shortness of breath, hemoptysis, SOB with excertion, pleuritic pain, sputum, wheezing, other Cardiovascular: denies: chest pain, palpitations, orthopnea, paroxysmal noc. dyspnea, edema, light headedness, other All other systems reviewed; all pertinent +/- noted in HPI/Subj - Medication Medications: Active Medications Generic Name Dose Route Start Last Admin Trade Name Freq PRN Reason Stop Dose Admin Sodium Chloride 1,000 mls @ 100 mls/hr 06/29/20 15:32 06/29/20 17:29 Normal Saline 0.9% IV 1,000 mls .Q10H JOSE Administration Cefazolin Sodium/Dextrose 2 gm 50 mls @ 100 mls/hr 06/29/20 17:00 06/29/20 17:28 / Device IVPB 06/30/20 01:29 50 mls 0100,0900,1700 JOSE Administration Hospitalist Exam Vitals: Vital Signs (12 hours) Temp Pulse Resp BP Pulse Ox 06/29/20 16:00 97.1 F L 79 18 137/80 100 Weight Weight 200 lb General Appearance: NAD, awake alert Neck: supple, no JVD Heart: RRR, no gallops, no rubs, normal peripheral pulses Respiratory: no wheezes, no rales, no ronchi, normal chest expansion Gastrointestinal: non-tender, non-distended, normal bowel sounds, no rigidity Extremities: no cyanosis, no clubbing, no edema Skin: normal turgor Neurological: normal sensation to touch, no weakness, no focal deficits Musculoskeletal: normal tone, normal strength Psychiatric: normal affect, A&O x 3 Hosp A/P - Plan DVT proph w/SCDs 75-year-old female admitted for elective right total knee replacement. Hospitalist team consulted for medical management. Coronary artery disease s/p CABG We will continue aspirin with beta-blockers, losartan and statins. There was no chest pain reported Hypertension Continue amlodipine, losartan, hydrochlorothiazide and metoprolol. Will add as needed antihypertensives Hyperlipidemia Continue statins Obesity with a BMI 36.6 Lifestyle modification emphasized Thank you for this consultation. We will follow with you
[2020-06-29] MEDS ORDERED: Polyethylene Glycol 3350 17 GM Packet PO PRN (19:47)
[2020-06-29] MEDS ORDERED: Labetalol HCl 100 MG/20 ML VIAL SLOW IVP PRN (19:47)
[2020-06-29] MEDS ORDERED: Vancomycin 1.5 GRAM/300 ML BAG 1.5 GM in Premix Bag 1 BAG IVPB SCH (20:00)
[2020-06-29] MEDS: Senokot S 8.6-50 MG TAB PO SCH (20:37)
[2020-06-29] MEDS: Aspirin 81 mg Enteric Coated Tablet PO SCH (20:37)
[2020-06-29] MEDS ORDERED: Amlodipine 5 MG TAB PO SCH (21:00)
[2020-06-29] MEDS ORDERED: Losartan 25 MG TAB PO SCH (21:00)
[2020-06-29] MEDS ORDERED: Metoprolol Tartrate 25 MG TAB PO SCH (21:00)
[2020-06-29] MEDS: Acetaminophen 325 MG TAB PO PRN (22:46)
[2020-06-30] MEDS: CEFAZOLIN 2 GM in Premix Bag 1 BAG IVPB SCH (00:16)
[2020-06-30] MEDS: Sodium Chloride 0.9% 1,000 ML IV SCH ×3 (02:05→21:32)
[2020-06-30 06:20] LABS: Mean Corpuscular HGB CONC 33.4 g/dL (32.0-36.0); Mean Corpuscular Hemoglobin 32.2 pg (27.0-31.0); Mean Corpuscular Volume 96.5 fL (78.0-98.0); Mean Platelet Volume 8.1 fL (7.4-10.4); Platelet Count 201 thou/uL (130-400); RBC Distribution Width 11.9 % (11.5-14.5); Red Blood Cell (RBC) Count 3.74 mill/uL (4.20-5.40); White Blood Cell (WBC) Count 10.8 thou/uL (4.8-10.8)
--- NOTE | 2020-06-30 07:29 | OP ---
DATE OF PROCEDURE: 06/29/2020 PREOPERATIVE DIAGNOSIS: Right knee osteoarthritis. POSTOPERATIVE DIAGNOSIS: Right knee osteoarthritis. PROCEDURE PERFORMED: Right total knee arthroplasty. QUALITY CONTROL PROJECTIONIST: Dino Ceron PA-C ANESTHESIOLOGIST: Fabiola Barriga MD ANESTHESIA: The patient received an LMA with a single-shot sciatic adductor canal catheter. ESTIMATED BLOOD LOSS: 100 mL. TOURNIQUET TIME: 67 minutes at 300 mmHg. ANTIBIOTICS: Ancef 2 g, vancomycin 1.5 g, TXA 1 g. IMPLANTS: The patient has Giorgio Triathlon size 4 CR femur, size 3 tibial base plate, size 3 x 9 mm X3 poly, and an S27 X3 poly. COMPLICATIONS: None. HISTORY OF PRESENT ILLNESS: Ms. Gomez is a 75-year-old female, who presents with right knee pain, failed conservative measures. She displayed x-ray evidence of right knee osteoarthritis. I discussed with her the risks and benefits of surgery to include pain, scar, bleeding, infection, damage to vital structures, decreased range of motion and strength, continued pain despite surgical intervention, need for further surgeries, blood clots, fracture above or below the stem, revision, loss of life or limb. The patient understood the risks and benefits and elected to proceed. DESCRIPTION OF PROCEDURE: Time-out was performed designating the patient's right lower extremity as the operative site based on site, consents, and marking. After time-out, the patient's right lower extremity was prepped and draped in sterile fashion. Tourniquet was brought up and left for a total of 67 minutes. In anterior midline approach, medial patellar arthrotomy was performed. We excised the fat pad, did a medial soft tissue release, everted the patella, and exposed the distal femur. We cut 9, 8, 0 degrees of varus and valgus, 4 degrees of slope. Being happy with our distal cut, we then placed our 3-degree external rotation guide in place. We pinned into position. We measured for a 4 based on medial and lateral width as well as based on the guide anteriorly. We then removed this, placed a size 4 block, cut 4, anterior and posterior chamfer cuts, placed our pickle fork, exposed the tibia, took off the tibial spines, pinned our jig into place and cut 2, 7, 0 degrees of varus and valgus, and 4 degrees of slope. We removed our bone and cleaned up any of the osteophytes. We placed a laminar head filter press tender medial and lateral, and removed the gutters. We removed posterior osteophytes as well as medial and lateral menisci. We decompressed the PCL and removed the ACL. The patient then had a 3-degree trial pinned in anterior one-third of the tibial tubercle down the tibial spine, medialized, pinned into place, placed a 9 poly. We placed a size 3 tibia, 9 poly, size 4 femur. The patient had good flexion, extension, good stability, firm endpoint of PCL. We then completed our final implants and everted the patella which had a biconcavity of the patella. We cut down from about 21 or 22 down to right at 12 and placed an S27 patella medialized. Being happy with the tracking, we then everted the patella, drilled our lugs, cut our keel for tibia, and washed. We cemented our tibia and removed excess cement. We placed our poly. We cemented our femur and removed excess cement. We cemented our patella and removed excess cement. Washed, flexed the knee back up to ensure no excess cement, washed, closed the arthrotomy with #2 Vicryl, #2 Stratafix, 0 Stratafix, 3-0 Stratafix, and glue. The patient will be admitted and will be weightbearing as tolerated per [place] protocol. The patient will be followed by Internal Medicine. My assistant portfolio manager helped me with the positioning, incision, exposure, osteotomies, trialing, implantation, washing, closure, and transferring to bed. Job ID: [id number] [facility]
[2020-06-30] MEDS: Multivitamin W/ Minerals 1 TAB PO SCH (08:43)
[2020-06-30] MEDS: Docusate 100 MG CAP PO SCH (08:43)
[2020-06-30] MEDS: Ferrous Gluconate 324 MG TAB PO SCH ×2 (08:43→21:31)
[2020-06-30] MEDS: Senokot S 8.6-50 MG TAB PO SCH ×2 (08:43→21:31)
[2020-06-30] MEDS: Acetaminophen 325 MG TAB PO PRN ×2 (08:44→23:42)
[2020-06-30] MEDS: Aspirin 81 mg Enteric Coated Tablet PO SCH ×2 (08:44→21:31)
[2020-06-30] MEDS: Multivit, Therapeutic 1 TAB PO SCH (08:44)
[2020-06-30] MEDS: Amlodipine 5 MG TAB PO SCH ×2 (08:44→21:31)
[2020-06-30] MEDS: Losartan 25 MG TAB PO SCH ×2 (08:45→21:32)
[2020-06-30] MEDS: Metoprolol Tartrate 50 MG TAB PO SCH ×2 (08:45→21:31)
[2020-06-30] MEDS: Rosuvastatin 10 MG TAB PO SCH (08:49)
[2020-06-30] MEDS ORDERED: LUTEIN PO SCH (09:00)
[2020-06-30] MEDS ORDERED: [UNRECOGNIZED DRUG - OTHER] PO SCH (09:00)
[2020-06-30] MEDS ORDERED: Hydrochlorothiazide 25 MG TAB PO SCH (09:00)
[2020-06-30] MEDS ORDERED: HYDROcodone/Acetaminophen 10/325 mg Tablet PO PRN ×2 (10:55)
[2020-06-30] MEDS ORDERED: traMADol HCl 50 MG TAB PO PRN (10:56)
[2020-06-30] MEDS: Ketorolac Tromethamine 30 MG/ML VIAL IVP SCH ×2 (13:20→21:32)
--- NOTE | 2020-06-30 14:32 | PDOC.HOSPP ---
- Subjective Encounter Date: 06/30/20 Encounter Time: 09:30 Subjective: Patient seen and examined for medical management. Denies any chest pain, shortness of breath or palpitations. No overnight events. - Objective Vital Signs & Weight: Vital Signs (12 hours) Temp Pulse Resp BP Pulse Ox 06/30/20 11:59 99.1 F 74 12 106/69 99 06/30/20 09:05 95 06/30/20 08:44 66 06/30/20 07:58 66 12 103/67 95 06/30/20 05:25 98.0 F 62 16 96/61 95 Weight Weight 200 lb I&O: 06/29/20 06/30/20 07/01/20 06:59 06:59 06:59 Intake Total 2170 Output Total 1400 Balance 770 Result Diagrams: 06/30/20 06:04 Radiology Reviewed by me: Yes (Knee x-rayreviewed) EKG Reviewed by me: Yes (Sinus rhythm) Hospitalist ROS - Review of Systems Respiratory: denies: cough, dry, shortness of breath, hemoptysis, SOB with excertion, pleuritic pain, sputum, wheezing, other Cardiovascular: denies: chest pain, palpitations, orthopnea, paroxysmal noc. dyspnea, edema, light headedness, other Gastrointestinal: denies: nausea, vomiting, abdominal pain, diarrhea, constipation, melena, hematochezia, other - Medication Medications: Active Medications Generic Name Dose Route Start Last Admin Trade Name Freq PRN Reason Stop Dose Admin Acetaminophen 650 mg 06/29/20 15:32 06/30/20 08:44 Acetaminophen 325 Mg Tab PO 650 mg Q4H PRN Administration Headache/Fever or Pain Amlodipine Besylate 5 mg 06/30/20 09:00 06/30/20 08:44 Amlodipine 5 Mg Tab PO Not Given BID JOSE Aspirin 81 mg 06/29/20 21:00 06/30/20 08:44 Aspirin 81 Mg Enteric Coated Tablet PO 81 mg BID JOSE Administration Docusate Sodium 100 mg 06/30/20 09:00 06/30/20 08:43 Docusate 100 Mg Cap PO 100 mg DAILY JOSE Administration Ferrous Gluconate 324 mg 06/30/20 09:00 06/30/20 08:43 Ferrous Gluconate 324 Mg Tab PO 324 mg BID JOSE Administration Hydrochlorothiazide 12.5 mg 06/30/20 09:00 06/30/20 08:45 Hydrochlorothiazide 25 Mg Tab PO Not Given DAILY JOSE Sodium Chloride 1,000 mls @ 100 mls/hr 06/29/20 15:32 06/30/20 13:17 Normal Saline 0.9% IV Not Given .Q10H JOSE Iron/Minerals/Multivitamins 1 tab 06/30/20 09:00 06/30/20 08:43 Multivitamin W/ Minerals 1 Tab PO 1 tab DAILY JOSE Administration Ketorolac Tromethamine 15 mg 06/30/20 14:00 06/30/20 13:20 Ketorolac Tromethamine 30 Mg/Ml Vial IVP 07/01/20 14:01 15 mg Q8HR JOSE Administration Losartan Potassium 50 mg 06/30/20 09:00 06/30/20 08:45 Losartan 25 Mg Tab PO Not Given BID JOSE Metoprolol Tartrate 50 mg 06/30/20 09:00 06/30/20 08:45 Metoprolol Tartrate 50 Mg Tab PO Not Given BID JOSE Multivitamins 1 tab 06/30/20 09:00 06/30/20 08:44 Multivit, Therapeutic 1 Tab PO 1 tab DAILY JOSE Administration Rosuvastatin Calcium 10 mg 06/30/20 09:00 06/30/20 08:49 Rosuvastatin 10 Mg Tab PO 10 mg DAILY JOSE Administration Senna/Docusate Sodium 2 tab 06/29/20 21:00 06/30/20 08:43 Senokot S 8.6-50 Mg Tab PO 2 tab BID JOSE Administration Hospitalist Exam Vitals: Vital Signs (12 hours) Temp Pulse Resp BP Pulse Ox 06/30/20 11:59 99.1 F 74 12 106/69 99 06/30/20 09:05 95 06/30/20 08:44 66 06/30/20 07:58 66 12 103/67 95 06/30/20 05:25 98.0 F 62 16 96/61 95 Weight Weight 200 lb General Appearance: NAD Neck: supple, no JVD Heart: RRR, no gallops Respiratory: no wheezes, no ronchi Gastrointestinal: soft, non-tender, normal bowel sounds Extremities: no cyanosis, no clubbing Neurological: no new deficit Hosp A/P - Plan DVT proph w/SCDs 75-year-old female admitted for elective right total knee replacement. Hospitalist team consulted for medical management. Coronary artery disease s/p CABG Continue aspirin, beta-blockers, ARB and statins Hypertension Blood pressure in lower range today. Will add holding parameters to antihypertensives. Will probably hold all the antihypertensives this morning. Will discontinue hydrochlorothiazide. Hyperlipidemia Will continue statins Obesity with a BMI 36.6 Lifestyle modification emphasized
[2020-07-01 06:15] LABS: Mean Corpuscular HGB CONC 33.1 g/dL (32.0-36.0); Mean Corpuscular Volume 96.6 fL (78.0-98.0); Mean Platelet Volume 8.3 fL (7.4-10.4); Platelet Count 181 thou/uL (130-400); RBC Distribution Width 12.2 % (11.5-14.5); Red Blood Cell (RBC) Count 3.77 mill/uL (4.20-5.40); White Blood Cell (WBC) Count 8.9 thou/uL (4.8-10.8)
[2020-07-01] MEDS: Ketorolac Tromethamine 30 MG/ML VIAL IVP SCH ×2 (06:21→13:55)
[2020-07-01] MEDS: Sodium Chloride 0.9% 1,000 ML IV SCH ×2 (06:45→19:23)
[2020-07-01] MEDS: Multivit, Therapeutic 1 TAB PO SCH (08:20)
[2020-07-01] MEDS: Multivitamin W/ Minerals 1 TAB PO SCH (08:20)
[2020-07-01] MEDS: Docusate 100 MG CAP PO SCH (08:20)
[2020-07-01] MEDS: Rosuvastatin 10 MG TAB PO SCH (08:21)
[2020-07-01] MEDS: Losartan 25 MG TAB PO SCH ×2 (08:21→19:52)
[2020-07-01] MEDS: Ferrous Gluconate 324 MG TAB PO SCH ×2 (08:21→19:52)
[2020-07-01] MEDS: Aspirin 81 mg Enteric Coated Tablet PO SCH ×2 (08:21→19:52)
[2020-07-01] MEDS: Amlodipine 5 MG TAB PO SCH ×2 (08:21→19:54)
[2020-07-01] MEDS: Senokot S 8.6-50 MG TAB PO SCH ×2 (08:21→19:52)
[2020-07-01] MEDS: Metoprolol Tartrate 50 MG TAB PO SCH ×2 (08:21→19:53)
--- NOTE | 2020-07-01 12:40 | PDOC.HOSPP ---
- Subjective Encounter Date: 07/01/20 Encounter Time: 09:00 Subjective: Patient seen and examined for medical management. Denies any new complaints at this time. No fever, chills, chest pain or palpitations reported - Objective Vital Signs & Weight: Vital Signs (12 hours) Temp Pulse Resp BP BP Pulse Ox 07/01/20 11:42 97.9 F 66 12 124/75 93 L 07/01/20 08:25 97 07/01/20 08:21 54 L 128/74 07/01/20 07:57 98.6 F 54 L 14 128/74 97 07/01/20 03:49 97.9 F 68 18 118/73 95 Weight Weight 200 lb I&O: 06/30/20 07/01/20 07/02/20 06:59 06:59 06:59 Intake Total 2170 1490 Output Total 1400 575 Balance 770 915 Result Diagrams: 07/01/20 05:40 Additional Labs: Abnormal Lab Results - Last 48 hrs 06/30/20 06:04: RBC 3.74 L, MCH 32.2 H 07/01/20 05:40: RBC 3.77 L, MCH 32.0 H Hospitalist ROS - Review of Systems Respiratory: denies: cough, dry, shortness of breath, hemoptysis, SOB with excertion, pleuritic pain, sputum, wheezing, other Cardiovascular: denies: chest pain, palpitations, orthopnea, paroxysmal noc. dyspnea, edema, light headedness, other - Medication Medications: Active Medications Generic Name Dose Route Start Last Admin Trade Name Freq PRN Reason Stop Dose Admin Acetaminophen 650 mg 06/29/20 15:32 06/30/20 23:42 Acetaminophen 325 Mg Tab PO 650 mg Q4H PRN Administration Headache/Fever or Pain Amlodipine Besylate 5 mg 06/30/20 09:00 07/01/20 08:21 Amlodipine 5 Mg Tab PO 5 mg BID JOSE Administration Aspirin 81 mg 06/29/20 21:00 07/01/20 08:21 Aspirin 81 Mg Enteric Coated Tablet PO 81 mg BID JOSE Administration Docusate Sodium 100 mg 06/30/20 09:00 07/01/20 08:20 Docusate 100 Mg Cap PO 100 mg DAILY JOSE Administration Ferrous Gluconate 324 mg 06/30/20 09:00 07/01/20 08:21 Ferrous Gluconate 324 Mg Tab PO 324 mg BID JOSE Administration Sodium Chloride 1,000 mls @ 100 mls/hr 06/29/20 15:32 07/01/20 06:45 Normal Saline 0.9% IV Not Given .Q10H JOSE Iron/Minerals/Multivitamins 1 tab 06/30/20 09:00 07/01/20 08:20 Multivitamin W/ Minerals 1 Tab PO 1 tab DAILY JOSE Administration Ketorolac Tromethamine 15 mg 06/30/20 14:00 07/01/20 06:21 Ketorolac Tromethamine 30 Mg/Ml Vial IVP 07/01/20 14:01 15 mg Q8HR JOSE Administration Losartan Potassium 50 mg 06/30/20 09:00 07/01/20 08:21 Losartan 25 Mg Tab PO 50 mg BID JOSE Administration Metoprolol Tartrate 50 mg 06/30/20 09:00 07/01/20 08:21 Metoprolol Tartrate 50 Mg Tab PO 50 mg BID JOSE Administration Multivitamins 1 tab 06/30/20 09:00 07/01/20 08:20 Multivit, Therapeutic 1 Tab PO 1 tab DAILY JOSE Administration Rosuvastatin Calcium 10 mg 06/30/20 09:00 07/01/20 08:21 Rosuvastatin 10 Mg Tab PO 10 mg DAILY JOSE Administration Senna/Docusate Sodium 2 tab 06/29/20 21:00 07/01/20 08:21 Senokot S 8.6-50 Mg Tab PO 2 tab BID JOSE Administration Hospitalist Exam Vitals: Vital Signs (12 hours) Temp Pulse Resp BP BP Pulse Ox 07/01/20 11:42 97.9 F 66 12 124/75 93 L 07/01/20 08:25 97 07/01/20 08:21 54 L 128/74 07/01/20 07:57 98.6 F 54 L 14 128/74 97 07/01/20 03:49 97.9 F 68 18 118/73 95 Weight Weight 200 lb General Appearance: awake alert Neck: supple, no JVD Heart: RRR, no gallops Respiratory: no wheezes, no ronchi Gastrointestinal: soft, non-tender, normal bowel sounds Extremities: no cyanosis Neurological: no new deficit Psychiatric: normal affect, A&O x 3 Hosp A/P - Plan DVT proph w/SCDs 75-year-old female admitted for elective right total knee replacement. Hospitalist team consulted for medical management. Coronary artery disease s/p CABG Will continue aspirin, beta-blockers, ARB and statins. Patient denies any chest pain at this time Hypertension Blood pressure stable. Will continue amlodipine, losartan and metoprolol with holding parameters. Can resume hydrochlorothiazide at discharge Hyperlipidemia Continue statins Obesity with a BMI 36.6 Lifestyle modification emphasized
[2020-07-01] MEDS: traMADol HCl 50 MG TAB PO PRN (19:51)
[2020-07-02] MEDS: Acetaminophen 325 MG TAB PO PRN ×2 (04:09→08:20)
[2020-07-02] MEDS: Sodium Chloride 0.9% 1,000 ML IV SCH (05:25)
[2020-07-02] MEDS: traMADol HCl 50 MG TAB PO PRN (05:39)
[2020-07-02 05:54] LABS: Hemoglobin 11.3 g/dL (12.0-16.0); Mean Corpuscular HGB CONC 33.2 g/dL (32.0-36.0); Mean Corpuscular Hemoglobin 31.3 pg (27.0-31.0); Mean Corpuscular Volume 94.4 fL (78.0-98.0); Mean Platelet Volume 8.1 fL (7.4-10.4); Platelet Count 199 thou/uL (130-400); RBC Distribution Width 12.2 % (11.5-14.5); White Blood Cell (WBC) Count 8.7 thou/uL (4.8-10.8)
[2020-07-02] MEDS: Rosuvastatin 10 MG TAB PO SCH (08:20)
[2020-07-02] MEDS: Multivit, Therapeutic 1 TAB PO SCH (08:21)
[2020-07-02] MEDS: Ferrous Gluconate 324 MG TAB PO SCH (08:21)
[2020-07-02] MEDS: Aspirin 81 mg Enteric Coated Tablet PO SCH (08:21)
[2020-07-02] MEDS: Losartan 25 MG TAB PO SCH (08:21)
[2020-07-02] MEDS: Senokot S 8.6-50 MG TAB PO SCH (10:18)
[2020-07-02] MEDS: Docusate 100 MG CAP PO SCH (10:18)
[2020-07-02] MEDS: Amlodipine 5 MG TAB PO SCH (10:18)
[2020-07-02] MEDS: Multivitamin W/ Minerals 1 TAB PO SCH (10:18)
[2020-07-02] MEDS: Metoprolol Tartrate 50 MG TAB PO SCH (10:18)
[2020-07-02 10:52] VITALS: BP 113/77; TEMP 97.7
== END 2020-07-02 13:58 | disposition home or self-care (01) | DRG 470 ==
LOC: EDSTATUS 06-15 11:00 → SURG A 06-29 06:58 → SURG B 06-29 15:56
PROVIDERS: ADMIT Orthopaedic Surgery; ATTEND Orthopaedic Surgery
PROC: 0SRC0J9 Replacement of Right Knee Joint with Synthetic Substitute, Cemented, Open Approach (ICD-10-PCS; principal; 2020-06-29)
DX: M17.11 Unilateral primary osteoarthritis, right knee (principal); M25.761 Osteophyte, right knee; Z20.822 Contact with and (suspected) exposure to COVID-19; I10 Essential (primary) hypertension; I25.10 Atherosclerotic heart disease of native coronary artery without angina pectoris; I48.91 Unspecified atrial fibrillation; E78.5 Hyperlipidemia, unspecified; E66.9 Obesity, unspecified; G47.33 Obstructive sleep apnea (adult) (pediatric); Z95.1 Presence of aortocoronary bypass graft; Z87.891 Personal history of nicotine dependence; Z90.710 Acquired absence of both cervix and uterus; Z68.36 Body mass index [BMI] 36.0-36.9, adult; Z79.899 Other long term (current) drug therapy
CPT/HCPCS: 36415; 85027; A4306; C1713; C1776; J0171; J0690; J1100; J1885; J2250; J2405; J2704; J2795; J3010; J3370; J3490; S0020

== ENCOUNTER 2021-06-23 12:40 | Outpatient (CLI) | payer MEDICARE, OTHER | END 2021-06-23 12:41 | disposition home or self-care (01) | LOC: BICCT 12:40 | PROVIDERS: ATTEND Family Medicine | DX: G44.52 New daily persistent headache (NDPH) (principal) | CPT/HCPCS: 70450 ==

== ENCOUNTER 2023-02-07 12:21 | Outpatient (CLI) | payer MEDICARE, OTHER | END 2023-02-07 12:22 | disposition home or self-care (01) | LOC: RAD 12:21 | PROVIDERS: ATTEND Thoracic Surgery (Cardiothoracic Vascular Surgery) | DX: I25.118 Atherosclerotic heart disease of native coronary artery with other forms of angina pectoris (principal); R59.0 Localized enlarged lymph nodes; J98.4 Other disorders of lung | CPT/HCPCS: 71046 ==

== ENCOUNTER 2023-04-26 12:23 | Emergency (ER) | payer MEDICARE, OTHER ==
[2023-04-26] MEDS ORDERED: Acetaminophen 500 MG TAB ONE (13:40)
== END 2023-04-26 17:50 | disposition home or self-care (01) ==
LOC: ERS 12:23
DX: S32.019A Unspecified fracture of first lumbar vertebra, initial encounter for closed fracture (principal); I10 Essential (primary) hypertension; Z87.891 Personal history of nicotine dependence; X50.0XXA Overexertion from strenuous movement or load, initial encounter
CPT/HCPCS: 72100; 72131

== ENCOUNTER 2023-05-25 11:07 | Inpatient (IN) | payer MEDICARE, OTHER ==
[2023-05-25] MEDS ORDERED: Aspirin Chewable 81 MG TAB ONE (11:26)
[2023-05-25] MEDS ORDERED: Amiodarone 150 MG/3 ML VIAL ONE (11:26)
[2023-05-25 11:27] LABS: #Basophils 0.1 thou/uL (0.0-0.2); #Eosinphils 0.4 thou/uL (0.0-0.7); #Monocytes 0.6 thou/uL (0.11-0.59); #Neutrophils 4.2 thou/uL (1.40-6.50); %Basophils 0.8 % (0.0-1.0); %Eosinophils 5.6 % (0.0-10.0); %Lymphocytes 29.1 % (21.0-51.0); %Monocytes 7.6 % (0.0-10.0); %Neutrophils 56.5 % (42.0-75.0); Hematocrit 46.9 % (36.0-47.0); Hemoglobin 16.1 g/dL (12.0-16.0); Mean Corpuscular HGB CONC 34.3 g/dL (32.0-36.0); Mean Corpuscular Hemoglobin 31.2 pg (27.0-31.0); Mean Corpuscular Volume 90.9 fl (78.0-98.0); Mean Platelet Volume 9.8 fL (7.4-10.4); Platelet Count 270 10x3/uL (130-400); RBC Distribution Width 13.5 % (11.5-14.5); Red Blood Cell (RBC) Count 5.16 mill/uL (4.20-5.40); White Blood Cell (WBC) Count 7.5 10x3/uL (4.8-10.8)
[2023-05-25 11:41] LABS: INR-International Normal Ratio 0.9; Prothrombin Time 12.4 sec (12.0-14.7)
[2023-05-25 11:42] LABS: PTT 31.6 sec (22.9-36.1)
[2023-05-25] MEDS ORDERED: Amiodarone 450 MG, Admixture Fee 1 EACH in Dextrose 5% in Water 250 ML IVPB SCH (11:45)
[2023-05-25 11:52] LABS: ALT (SGPT) 16 U/L (8-55); AST (SGOT) 23 U/L (5-34); Albumin 4.6 g/dL (3.4-4.8); Alkaline Phosphatase 81 U/L (40-110); Anion Gap 12 mmol/L (10-20); BUN (Urea Nitrogen) 12 mg/dL (9.8-20.1); Bilirubin, Total 1.1 mg/dL (0.2-1.2); CK (CPK) 68 U/L (29-168); Calc. Creatinine Clearance 0 mL/min (70-130); Calcium 10.4 mg/dL (7.8-10.44); Carbon Dioxide 27 mmol/L (23-31); Chloride 102 mmol/L (98-107); Estimated GFR 75; Globulin 3.5 g/dL (2.4-3.5); Glucose 108 mg/dL (83-110); Potassium 3.4 mmol/L (3.5-5.1); Protein, Total 8.1 g/dL (5.8-8.1); Sodium 138 mmol/L (136-145)
[2023-05-25 11:56] LABS: Troponin I Less than 0.010 ng/mL (< 0.028)
[2023-05-25] MEDS ORDERED: Senokot S 8.6-50 MG TAB PO PRN (14:21)
[2023-05-25] MEDS ORDERED: Acetaminophen 325 MG TAB PO PRN (14:21)
[2023-05-25] MEDS ORDERED: Electrolyte Replacement Protocol 1 EACH FS SCH (14:30)
[2023-05-25] MEDS ORDERED: Potassium Chloride 20 MEQ TAB PO SCH (15:00)
[2023-05-25 17:59] LABS: Troponin I Less than 0.010 ng/mL (< 0.028)
[2023-05-25 18:30] LABS: Magnesium 2.1 mg/dL (1.6-2.6)
[2023-05-25 20:51] LABS: Troponin I Less than 0.010 ng/mL (< 0.028)
[2023-05-25] MEDS ORDERED: Amiodarone 200 MG TAB PO SCH (21:00)
[2023-05-25] MEDS: Losartan 25 MG TAB PO SCH (21:04)
[2023-05-25] MEDS: Amiodarone 200 MG TAB PO SCH (21:04)
[2023-05-26 05:19] LABS: Anion Gap 7 mmol/L (10-20); BUN (Urea Nitrogen) 11 mg/dL (9.8-20.1); Calc. Creatinine Clearance 63 mL/min (70-130); Calcium 9.3 mg/dL (7.8-10.44); Carbon Dioxide 32 mmol/L (23-31); Chloride 104 mmol/L (98-107); Estimated GFR 72; Glucose 91 mg/dL (83-110); Magnesium 2.1 mg/dL (1.6-2.6); Potassium 4.2 mmol/L (3.5-5.1); Sodium 139 mmol/L (136-145)
[2023-05-26] MEDS: Enoxaparin 40 MG (0.4 mL) SYRINGE SC SCH (08:43)
[2023-05-26] MEDS: Amiodarone 200 MG TAB PO SCH ×2 (08:43→21:01)
[2023-05-26] MEDS: Losartan 25 MG TAB PO SCH ×2 (08:43→21:01)
[2023-05-26 10:49] VITALS: BMI 28.6
[2023-05-27 05:42] LABS: #Eosinphils 0.3 thou/uL (0.0-0.7); #Monocytes 0.5 thou/uL (0.11-0.59); %Basophils 0.6 % (0.0-1.0); %Eosinophils 6.1 % (0.0-10.0); %Lymphocytes 26.1 % (21.0-51.0); %Monocytes 8.8 % (0.0-10.0); %Neutrophils 58.2 % (42.0-75.0); Hematocrit 39.8 % (36.0-47.0); Hemoglobin 13.5 g/dL (12.0-16.0); Mean Corpuscular HGB CONC 33.9 g/dL (32.0-36.0); Mean Corpuscular Hemoglobin 31.4 pg (27.0-31.0); Mean Corpuscular Volume 92.6 fl (78.0-98.0); Mean Platelet Volume 9.4 fL (7.4-10.4); Platelet Count 211 10x3/uL (130-400); RBC Distribution Width 13.7 % (11.5-14.5); White Blood Cell (WBC) Count 5.1 10x3/uL (4.8-10.8)
[2023-05-27 06:05] LABS: Anion Gap 10 mmol/L (10-20); BUN (Urea Nitrogen) 14 mg/dL (9.8-20.1); Calc. Creatinine Clearance 65 mL/min (70-130); Calcium 9.1 mg/dL (7.8-10.44); Carbon Dioxide 25 mmol/L (23-31); Chloride 104 mmol/L (98-107); Estimated GFR 75; Glucose 95 mg/dL (83-110); Potassium 3.7 mmol/L (3.5-5.1); Sodium 135 mmol/L (136-145)
[2023-05-27] MEDS: Amiodarone 200 MG TAB PO SCH (07:46)
[2023-05-27] MEDS: Enoxaparin 40 MG (0.4 mL) SYRINGE SC SCH (07:46)
[2023-05-27] MEDS: Losartan 25 MG TAB PO SCH (07:46)
[2023-05-27 12:23] VITALS: BP 129/63; TEMP 98.4
[2023-05-27] MEDS ORDERED: Amiodarone 200 MG TAB PO SCH ×2 (14:00→21:00)
[2023-05-28] MEDS ORDERED: Amiodarone 200 MG TAB PO SCH (09:00)
== END 2023-05-27 16:00 | disposition home or self-care (01) | DRG 310 ==
LOC: ERS 11:07 → ERHOLD 13:51 → 2NO 16:48
PROVIDERS: ADMIT Internal Medicine; ATTEND Internal Medicine
DX: I47.29 Other ventricular tachycardia (principal); I48.91 Unspecified atrial fibrillation; E78.5 Hyperlipidemia, unspecified; I10 Essential (primary) hypertension; I25.10 Atherosclerotic heart disease of native coronary artery without angina pectoris; J43.9 Emphysema, unspecified; Z95.1 Presence of aortocoronary bypass graft; Z90.49 Acquired absence of other specified parts of digestive tract; Z90.710 Acquired absence of both cervix and uterus; Z98.890 Other specified postprocedural states; Z79.899 Other long term (current) drug therapy; Z79.82 Long term (current) use of aspirin; Z87.891 Personal history of nicotine dependence; E78.2 Mixed hyperlipidemia
CPT/HCPCS: 36415; 71045; 80048; 80053; 80061; 82550; 83735; 83880; 84484; 85025; 85610; 85730; 93005; 93306; 96365; 96366; 96376; J0282; J0283; J1650; J7070

== ENCOUNTER 2024-02-25 13:55 | Outpatient (CLI) | payer MEDICARE, OTHER | END 2024-02-25 13:56 | disposition home or self-care (01) | LOC: BICMAMMO 13:55 | PROVIDERS: ATTEND Nurse Practitioner Family | DX: Z12.31 Encounter for screening mammogram for malignant neoplasm of breast (principal); Z80.3 Family history of malignant neoplasm of breast | CPT/HCPCS: 77063; 77067 ==

== ENCOUNTER → 2024-03-26 | Outpatient (CLI) | payer MEDICARE, OTHER | LOC: BICRAD 14:25 | PROVIDERS: ATTEND Nurse Practitioner Family | DX: M25.551 Pain in right hip (principal); M25.552 Pain in left hip; M54.50 Low back pain, unspecified; M53.3 Sacrococcygeal disorders, not elsewhere classified; S32.018A Other fracture of first lumbar vertebra, initial encounter for closed fracture; M41.35 Thoracogenic scoliosis, thoracolumbar region; M47.816 Spondylosis without myelopathy or radiculopathy, lumbar region; M43.16 Spondylolisthesis, lumbar region; M16.12 Unilateral primary osteoarthritis, left hip | CPT/HCPCS: 72100; 72220 ==

== ENCOUNTER 2024-05-28 13:43 | Outpatient (CLI) | payer MEDICARE, OTHER ==
[~2024-05-28 13:43] MED LIST changes: +Iopamidol 370 76% 100 ML VIAL ONE; -PROPOFOL 20 ML ONE; -PROPOFOL 200 MG/20 ML VIAL ONE
== END 2024-05-28 13:44 | disposition home or self-care (01) ==
LOC: BICCT 13:43
PROVIDERS: ATTEND Internal Medicine Cardiovascular Disease
DX: I71.21 Aneurysm of the ascending aorta, without rupture (principal); I77.810 Thoracic aortic ectasia
CPT/HCPCS: 36415; 71275; 82565

== ENCOUNTER 2025-03-04 10:44 | Outpatient (CLI) | payer MEDICARE, OTHER | END 2025-03-04 10:45 | disposition home or self-care (01) | LOC: BICMAMMO 10:44 | PROVIDERS: ATTEND Family Medicine | DX: Z12.31 Encounter for screening mammogram for malignant neoplasm of breast (principal); Z80.3 Family history of malignant neoplasm of breast; Z85.820 Personal history of malignant melanoma of skin | CPT/HCPCS: 77063; 77067 ==